=== PATIENT | female | born 1965 | race Caucasian/White ===

== ENCOUNTER → 2016-11-23 | Day surgery (SDC) | payer MEDICARE, OTHER ==
[~2016-11-23] MED LIST: ASPI325T PO; BACL10TA PO; BUPIVACAINE HCL PF 0.5% 30 ML VIAL ONE; CURI4PAD20 EXT; ENAL5TAB PO; KETOROLAC TROMETHAMINE 30 MG/ML (IVP) VIAL ONE; LACTATED RINGER'S 1000 ML INJ 1,000 ML ONE; LORA-474 PO; ONDANSETRON HCL 4 MG/2 ML VIAL IV PUSH ONE; OXYC1TAB63 PO; PRAV40TA2 PO; PROPOFOL 200 MG/20 ML AMP IV ONE; [UNRECOGNIZED DRUG - CODE]; [UNRECOGNIZED DRUG - CODE] EXT; [UNRECOGNIZED DRUG - CODE] EXT; [UNRECOGNIZED DRUG - CODE] EXT; [UNRECOGNIZED DRUG - CODE] EXT; [UNRECOGNIZED DRUG - SUPPLY] EXT; ceFAZolin 2 GM PREMIX 50 ML ONE
--- NOTE | 2016-11-23 12:44 | TN ---
cc: STEFANI MAHAN DATE OF SURGERY 11/23/2016 PRINCIPAL DIAGNOSIS BI-RADS five palpable right breast mass. PROCEDURE PERFORMED Ultrasound-guided right breast biopsy using a core needle with a tissue marker. ANESTHESIA TIVA SURGEON Stefani Mahan MD INDICATION The patient is a 51-year-old female with congenital hydrocephalus who is unable to cooperate or lay flat for procedures. She required sedation to evaluate a large palpable right breast mass which is highly suspicious for malignancy. She now presents for the procedure. FINDINGS AT SURGERY A 3 x 2 cm firm right breast mass with overlying lymphedema was identified at 12 o'clock 3 cm from the nipple. PROCEDURE PERFORMED After informed consent was obtained from the patient's mother, site verification was performed and she was brought back to the major operating room. She underwent IV sedation and the right breast was prepped and draped in a sterile fashion. There was an obvious palpable mass at 12 o'clock and the skin overlying the mass did have a healing biopsy site. The lesion was identified using conventional scanning techniques and a high-frequency transducer with a sterile probe. The skin lateral to the transducer was incised and a 14-gauge core biopsy needle was introduced using ultrasound guidance until the needle tip was within the lesion. Six core samples were obtained and sent for pathologic evaluation utilizing ultrasound guidance. The biopsy needle was then removed and a 14-gauge linear Mammotome tissue marker was placed in the biopsy cavity using ultrasound guidance. Hemostasis was easily obtained with direct pressure and Steri-Strips were applied. The patient tolerated the procedure well and will follow up her biopsy results next week. MD LOPEZ Gongora/MILLIE /12:29 PM /12:39 PM
== END | disposition home or self-care (01) ==
LOC: ESDC 09:57
PROVIDERS: ATTEND Surgery
DX: C50.911 Malignant neoplasm of unspecified site of right female breast (principal)
CPT/HCPCS: 00400; 19125; 88305; J0690; J1885; J2405; J3010; J7120; 88361

== ENCOUNTER 2016-12-30 05:46 | Inpatient (IN) | payer MEDICARE, OTHER ==
[~2016-12-30] VITALS: Ht 149.9 cm; Wt 62.7 kg
[~2016-12-30 05:46] MED LIST changes: -ASPI325T PO; -BACL10TA PO; -BUPIVACAINE HCL PF 0.5% 30 ML VIAL ONE; -ENAL5TAB PO; -KETOROLAC TROMETHAMINE 30 MG/ML (IVP) VIAL ONE; -LACTATED RINGER'S 1000 ML INJ 1,000 ML ONE; -LORA-474 PO; -ONDANSETRON HCL 4 MG/2 ML VIAL IV PUSH ONE; -OXYC1TAB63 PO; -PRAV40TA2 PO; -PROPOFOL 200 MG/20 ML AMP IV ONE; -ceFAZolin 2 GM PREMIX 50 ML ONE
[2016-12-30] MEDS ORDERED: CHLORHEXIDINE GLUCONATE 2 % 1 PACK (2 CLOTHS) TOPICAL PRN (06:30)
[2016-12-30] MEDS ORDERED: LACTATED RINGER'S 1000 ML IV PRN (06:30)
[2016-12-30] MEDS ORDERED: SODIUM CHLORID 0.9% 500 ML IV PRN (06:30)
[2016-12-30] MEDS ORDERED: METOPROLOL TARTRATE 25 MG TAB PO PRN (06:30)
[2016-12-30] MEDS ORDERED: POVIDONE IODINE 5% (ANTISEPSIS KIT) 4 APPLICATIONS EACH NARE PRN (06:30)
[2016-12-30] MEDS ORDERED: INSULIN HUMAN REGULAR 1,000 UNITS/10 ML VIAL SQ PRN (06:30)
[2016-12-30] MEDS ORDERED: ONDANSETRON HCL 4 MG/2 ML VIAL IV PUSH SCH (06:30)
[2016-12-30 07:12] VITALS: PULSE 117; RESP 22; TEMP 97.4; O2SAT 100
[2016-12-30 07:17] LABS: AUTOMATED NEUTROPHIL # 5.9 TH/MM3 (1.8-7.7); BASOPHIL # 0.1 TH/MM3 (0-0.2); BASOPHIL % 0.9 % (0.0-2.0); EOSINOPHIL # 0.4 TH/MM3 (0-0.4); EOSINOPHIL % 5.1 % (0.0-4.0); HEMATOCRIT 39.1 % (35.0-46.0); LYMPH % 13.6 % (9.0-44.0); LYMPHOCYTE # 1.1 TH/MM3 (1.0-4.8); MEAN CELL VOLUME 84.3 FL (80.0-100.0); MEAN CORPUSCULAR HEMOGLOBIN 29.5 PG (27.0-34.0); MONO % 8.9 % (0.0-8.0); NEUT % 71.5 % (16.0-70.0); PLATELET COUNT 294 TH/MM3 (150-450); RED BLOOD COUNT 4.64 MIL/MM3 (4.00-5.30); RED CELL DISTRIBUTION WIDTH 13.2 % (11.6-17.2); WHITE BLOOD COUNT 8.3 TH/MM3 (4.0-11.0)
[2016-12-30 07:20] LABS: HEMO FLAGS AUTO DIFF
[2016-12-30 07:55] LABS: PLATELET ESTIMATE SMEAR NORMAL (NORMAL); PLATELET MORPHOLOGY NORMAL (NORMAL); SCAN/DIFF AUTO DIFF CONFIRMED
[2016-12-30] MEDS ORDERED: ISOSULFAN BLUE 50 MG/5 ML VIAL SQ ONE ×2 (09:02→13:45)
[2016-12-30] MEDS ORDERED: ePHEDrine/NS 25 MG/5 ML SYR IV ONE (09:03)
[2016-12-30] MEDS ORDERED: PROPOFOL 200 MG/20 ML AMP IV ONE (09:03)
[2016-12-30] MEDS ORDERED: ONDANSETRON HCL 4 MG/2 ML VIAL IV PUSH ONE (09:04)
[2016-12-30] MEDS ORDERED: NEOSTIGMINE 3 MG/3 ML SYR IV ONE (09:04)
[2016-12-30] MEDS ORDERED: LACTATED RINGER'S 1000 ML INJ 2,000 ML IV ONE (09:04)
[2016-12-30] MEDS ORDERED: PHENYLEPH/NS 1000 MCG/10 ML SYR IV ONE (09:04)
--- NOTE | 2016-12-30 09:38 | RADRPT ---
EXAM DATE/TIME: 12/30/2016 08:35 [facility] COMPARISON: No previous studies available for comparison. INDICATIONS : Right breast cancer. DOSE: 1.0 mCi Tc99m Sulfur Colloid INJECTION SITE: Right Breast MEDICAL HISTORY : Mentally disbaled. SURGICAL HISTORY : Liver/Right breast biopsy. ENCOUNTER: Initial ACUITY: 1 day PAIN SCALE: 0/10 LOCATION: Right Breast. TECHNIQUE: Injection(s) of sulfur colloid was performed under sonographic guidance. Static imaging was obtained .. FINDINGS: This known right breast masses was identified by ultrasound. Superficial and deep injection around th e mass was performed. Imaging was performed at 30 minutes. There is some mild outward migration of th e tracer but no definite swati localization is seen. CONCLUSION: 1. Successful injection for lymphoscintigraphy. No definite swati localization identified at 30 minut lamar Baer MD on December 30, 2016 at 9:36 Board Certified Radiologist. This report was verified electronically.
[2016-12-30] MEDS ORDERED: ceFAZolin 2 GM PREMIX 50 ML IV SCH (10:00)
[2016-12-30] MEDS ORDERED: KETAMINE HCL 500 MG/5 ML VIAL ONE (10:48)
[2016-12-30] MEDS ORDERED: ACETAMINOPHEN 1000 MG/100 ML VIAL IV ONE (10:50)
--- NOTE | 2016-12-30 10:59 | RADRPT ---
EXAM DATE/TIME: 12/30/2016 08:24 [facility] COMPARISON: No previous studies available for comparison. EXTERNAL COMPARISON : [facility], MAMMOGRAM, LEFT BREAST W TOMOSYNTHESIS, November 22, 2016[facility], MAMM OGRAM, RIGHT BREAST, October. [facility], US BREAST, RIGHT, November 11, 2016. INDICATIONS : Right breast cancer. MEDICAL HISTORY : Carcinoma, breast. SURGICAL HISTORY : Right breast biopsy. Liver biopsy. ENCOUNTER: Initial ACUITY: 1 day PAIN SCORE: 1/10 LOCATION: Right breast. AREA EVALUATED: Right breast, upper quadrant; at 12 o'clock Radiopharmaceutical dose: 1 Tc99m [place] colloid FINDINGS: Breast ultrasound was performed prior to lymphoscintigraphy. CONCLUSION: 1. The examination demonstrates a 2.6 x 2.2 x 2.6 cm ill-defined hypoechoic mass with hypervascular f low in the right breast at 12: 2. 00. Findings are consistent with malignancy. Injection for lymphoscintigraphy was performed in the deep and superficial planes around this lesion. Trey Baer MD on December 30, 2016 at 10:57 Board Certified Radiologist. This report was verified electronically.
[2016-12-30] MEDS ORDERED: SODIUM CHLORIDE 0.9% 20 ML VIAL ONE (11:04)
[2016-12-30] MEDS ORDERED: HEPARIN SODIUM - IV 10,000 UNITS/10 ML VIAL ONE (11:05)
[2016-12-30] MEDS ORDERED: BUPIVACAINE/EPINEPHRINE 0.5% PF 30 ML VIAL ONE ×2 (11:05→12:02)
[2016-12-30] MEDS ORDERED: ceFAZolin INJ 1,000 MG VIAL IV ONE (11:59)
[2016-12-30] MEDS ORDERED: DO NOT ADM ANY ANTICOAGULANT DRUGS PRN (15:37)
[2016-12-30] MEDS ORDERED: oxyCODONE/ACETAMINOPHEN 5 MG/325 MG TAB PO PRN (15:45)
[2016-12-30] MEDS ORDERED: fentaNYL CITRATE 250 MCG/5 ML AMP ONE ×2 (15:47)
[2016-12-30] MEDS ORDERED: *morphine SULFATE 8 MG/ML PERIprocedure ONLY ONE ×3 (15:52→17:18)
[2016-12-30] MEDS ORDERED: *ONDANSETRON 4 MG VIAL PERIprocedural Use ONLY ONE (15:58)
[2016-12-30] MEDS ORDERED: *PROMETHAZINE 25 MG/ML VIAL PERIprocedural use ONLY ONE (15:58)
[2016-12-30] MEDS: SODIUM CHLOR 0.9% 1000 ML INJ 1,000 ML IV SCH ×2 (16:22→21:40)
--- NOTE | 2016-12-30 16:59 | RADRPT ---
EXAM DATE/TIME: 12/30/2016 17:17 [facility] COMPARISON: FLUOROSCOPY FOR CV CATH [facility], December 30, 2016, 0:00. INDICATIONS : Infusaport insertion. MEDICAL HISTORY : Carcinoma, breast. SURGICAL HISTORY : Mastectomy, bilateral. ENCOUNTER: Initial ACUITY: 1 day PAIN SCORE: Non-responsive. LOCATION: Left upper chest FINDINGS: The examination demonstrates an [id number]-[id number] placed via the left subclavian vein. The catheter is in good position there is no pneumothorax. There surgical drains evident overlying both sides of the chest. The bony structures are intact. CONCLUSION: [id number]-c-Fetz in good position without evidence of pneumothorax. Trey Baer MD on December 30, 2016 at 16:57 Board Certified Radiologist. This report was verified electronically.
[2016-12-30 17:30] VITALS: BP 152/85; PULSE 109; RESP 14; TEMP 96.1; O2SAT 100
[2016-12-30 19:54] VITALS: O2SAT 99
[2016-12-30 20:00] VITALS: BP 176/97; PULSE 105; RESP 20; TEMP 97.4; O2SAT 96
[2016-12-30] MEDS: MORPHINE SULFATE 4 MG/ML INJ IV PRN (21:40)
[2016-12-31] VITALS (7 sets, daily range): BP systolic 108–129; BP diastolic 55–71; PULSE 78–94; RESP 12–20; TEMP 95.8–98.8; O2SAT 95–99
[2016-12-31] MEDS: MORPHINE SULFATE 4 MG/ML INJ IV PRN (06:16)
[2016-12-31] MEDS: SODIUM CHLOR 0.9% 1000 ML INJ 1,000 ML IV SCH (09:32)
--- NOTE | 2016-12-31 12:50 | HHI.PR ---
Subjective Subjective Notes Patient resting but too sedated to ambulate or eat. Will stop IV narcotics and continue observation. Objective Vitals/I&O Vital Signs Date Time Temp Pulse Resp B/P Pulse Ox O2 Delivery O2 Flow Rate FiO2 12/31/16 08:00 97.2 78 12 109/62 98 12/30/16 19:54 Nasal Cannula 2.00 Labs PO intake minimal UOP 1200 after straight cath. Cardiovascular: Regular Lungs: Clear Narrative Exam Chest wall flaps clean and viable. No ischemia. Wound Wound : Appearance: Clean & Dry Drainage: Clear A/P Assessment and Plan Stable but too sedated for discharge. Will stop IV morphine and continue hospital observation. Discharge Planning Anticipate discharge tomorrow. Stefani Corrales MD Dec 31, 2016 12:50
[2017-01-01] VITALS: BP 157/80; PULSE 113; RESP 20; TEMP 99.5; O2SAT 96
[2017-01-01 08:00] VITALS: BP 103/68; PULSE 81; RESP 18; TEMP 97.1; O2SAT 95
[2017-01-01 10:28] VITALS: O2SAT 97
[2017-01-01 12:00] VITALS: BP 152/81; PULSE 104; RESP 20; TEMP 97.3; O2SAT 98
--- NOTE | 2017-01-01 13:17 | HHI.PR ---
Subjective Subjective Notes Somewhat more alert but not ambulatory and not eating. Objective Vitals/I&O PO intake 120cc. Voided 3 times. L drain 95cc, right drain 60cc Vital Signs Date Time Temp Pulse Resp B/P Pulse Ox O2 Delivery O2 Flow Rate FiO2 01/01/17 10:28 97 Nasal Cannula 21 01/01/17 08:00 97.1 81 18 103/68 12/31/16 18:02 2.00 Cardiovascular: Regular Lungs: Clear Narrative Exam Chest wall flaps clean. No infection or seroma. Left upper flap with 2 X 3 cm area superficial ecchymosis and ischemia. A/P Assessment and Plan Stable but too sedated for discharge. Still sedated despite no morphine. Not yet ambulatory or taking po. Will stop all narcotics and give IV hydration. Anticipate DC tomorrow. Discharge Planning Anticipate discharge tomorrow. Stefani Corrales MD Jan 01, 2017 13:17
[2017-01-01] MEDS: SODIUM CHLOR 0.9% 1000 ML INJ 1,000 ML IV SCH (14:56)
[2017-01-01 16:00] VITALS: BP 146/78; PULSE 98; RESP 21; TEMP 97.6; O2SAT 99
[2017-01-01 20:00] VITALS: BP 160/89; PULSE 102; RESP 20; TEMP 98.4; O2SAT 98
[2017-01-02] VITALS: BP 156/77; PULSE 94; RESP 20; TEMP 97.6; O2SAT 97
[2017-01-02] MEDS: SODIUM CHLOR 0.9% 1000 ML INJ 1,000 ML IV SCH ×2 (00:34→10:03)
[2017-01-02 08:00] VITALS: BP 153/95; PULSE 102; RESP 12; TEMP 96.6; O2SAT 97
--- NOTE | 2017-01-02 11:16 | HHI.PR ---
Subjective Subjective Notes More alert today Resting comfortably. No nausea. Objective Vitals/I&O Vital Signs Date Time Temp Pulse Resp B/P Pulse Ox O2 Delivery O2 Flow Rate FiO2 01/02/17 08:00 96.6 102 12 153/95 97 01/01/17 10:28 Nasal Cannula 21 12/31/16 18:02 2.00 PO intake 720cc. IV 1400. L drain 60cc, right 30cc. Radiology Chest Xray 12/30 showed good port position and no pneumothorax. Narrative Exam Chest wall flaps clean. No infection or seroma. Left upper flap with 3 X 3 cm area ischemia medially. R chest wall flap clean and viable. Wound Wound : Dressing: Dry A/P Assessment and Plan Stable but too sedated for discharge. Still sedated despite no morphine. Not yet ambulatory or taking po. Will stop all narcotics and give IV hydration. Anticipate DC tomorrow. Discharge Planning Anticipate discharge tomorrow. Stefani Corrales MD Jan 02, 2017 11:16
--- NOTE | 2017-01-02 11:21 | HHI.PR ---
Objective Vitals/I&O Vital Signs Date Time Temp Pulse Resp B/P Pulse Ox O2 Delivery O2 Flow Rate FiO2 01/02/17 08:00 96.6 102 12 153/95 97 01/01/17 10:28 Nasal Cannula 21 12/31/16 18:02 2.00 Radiology Chest Xray 12/30 showed good port position and no pneumothorax. Narrative Exam Chest wall flaps clean. No infection or seroma. Left upper flap with 3 X 3 cm area ischemia medially. R chest wall flap clean and viable. A/P Assessment and Plan Stable and less sedated. D/C home today. Discharge Planning Discharge with home health. Attending Statement Patient required 3 day postop stay for hydration and to counter sedation. Now improved. Stefani Corrales MD Jan 02, 2017 11:21
--- NOTE | 2017-01-02 11:27 | HHI.DS ---
Discharge Summary Admission Date Dec 30, 2016 at 15:48 Admitting Diagnosis CBC/BMP: 12/30/16 0650 PE at Discharge Chest wall flaps clean. No infection or seroma. Left upper flap with 3 X 3 cm area ischemia medially. R chest wall flap clean and viable. Pt Condition on Discharge: Good Discharge Disposition: Disch w/ Home Health Serv Discharge Instructions DIET: Follow Instructions for: As Tolerated, No Restrictions Activities you can perform: Shower Only-No Bath Stefani Corrales MD Jan 02, 2017 11:27
--- NOTE | 2017-01-02 11:42 | HHI.FF ---
Face to Face Verification Diagnosis: (1) Breast cancer greater than or equal to 2 cm in greatest dimension (2) Neurocognitive disorder (3) Obsessive compulsive disorder Home Health Nursing Order: Wound care and dressing changes I have seen patient Patrizia Moreno on 01/02/17. My clinical findings support the need for the requested home health care services because: Deconditioned w/ increased weakness Impaired cognition/judgement I certify that my clinical findings support that this patient is homebound because: Post-op weakness Impaired cognitive ability/safety Requires fulltime care by mother and sister. Post mastectomy and needs dressing care assistance. Stefani Corrales MD Jan 02, 2017 11:41
[2017-01-02 12:00] VITALS: BP 156/97; PULSE 91; RESP 14; TEMP 99.3; O2SAT 98
--- NOTE | 2017-01-02 12:23 | MP ---
cc: STEFANI MAHAN M.D. DATE OF SURGERY: 12/30/2016 PRINCIPAL DIAGNOSIS Clinical stage II right breast cancer ATTENDING PHYSICIAN Stefani Mahan MD HISTORY OF PRESENT ILLNESS The patient is a 51-year-old female known to be BRCA positive who presented with T2 palpable large subareolar right breast cancer. Because she is BRCA positive, she has opted for bilateral mastectomy as well as port placement and now presents for the procedure. FINDINGS AT THE TIME OF SURGERY Three sentinel lymph nodes were identified. #1 had a count of 341 and was not blue. #2 had a count of 55 and #3 had a count of 40. Touch prep was negative for metastatic disease. PROCEDURE PERFORMED After informed consent was obtained from the patient's family and site verification was performed, she was brought to the radiology suite where she underwent peritumoral radionuclide injection. She was then brought to the major operating room where she was given a single dose of IV Ancef and sequential compression hose were placed. She underwent general endotracheal anesthesia and a Moreno catheter was placed. The right and left breast as well as the neck and right arm were prepped and draped in sterile fashion. 5 ccs of half-strength Lymphazurin were injected in the subareolar right breast with a 5-minute massage. The patient was placed in Trendelenburg and the left subclavian vein was accessed via percutaneous cannulation. A J-wire was advanced via the Seldinger technique into the central circulation where its position was confirmed with fluoroscopy. Sharp and electrocautery dissection was then performed to create a subcutaneous pocket for the reservoir. A peel-away sheath and introducer were advanced over the wire and the wire and introducer were removed. The catheter was cut off at 30 cm and advanced easily through the peel-away sheath which was then removed. Fluoroscopy demonstrated good position of the catheter tip at 17 cm and it was cut off at this point and secured to the reservoir. The reservoir was noted to flush and aspirate easily and it was secured to the chest wall with two 2-0 Prolene sutures. Good hemostasis was noted and the wound was closed using interrupted 3-0 Vicryl subcutaneous sutures and a 4-0 Monocryl subcuticular suture. Steri-Strips and a sterile dressing were applied. Attention was then turned to the left breast where a classic elliptical incision was marked out. 210 ccs of tumescent solution mixed with 30 ccs of Marcaine with epinephrine were then infiltrated circumferentially around the breast in the plane between the subcutaneous fat and anterior breast fascia. Sharp dissection was performed in this same plane superiorly to the clavicle, medially to the parasternal area, laterally to the axilla, and inferiorly to the anterior rectus sheath. Electrocautery was then used to dissect the breast tissue off the pectoralis muscle including the pectoralis fascia with the specimen. The specimen was amputated in the axilla and oriented with the skin anterior, one short suture superiorly, and one long suture laterally. The breast was then sent for permanent pathologic evaluation. A stab wound was created along the anterior axillary line and a 10-Bahamian channel drain was placed along the chest wall and secured to the skin with a single 3-0 Nylon suture. The wound was closed using interrupted 3-0 Vicryl subcutaneous sutures and a 4-0 Monocryl subcuticular suture. Steri-Strips and sterile dressing were applied. Attention was then turned to the right breast where a large palpable subareolar mass was identified. A classic elliptical incision was marked out to include the skin overlying the palpable tumor. 250 ccs of tumescent solution mixed with 30 ccs of Marcaine with epinephrine were infiltrated circumferentially around the breast and the plane between the subcutaneous fat and anterior breast fascia. Further sharp dissection was performed in this same plane superiorly to the clavicle, medially to the parasternal area, inferiorly to the anterior rectus sheath, and laterally to the axilla. The breast was again dissected off the pectoralis muscle using electrocautery and the pectoralis fascia was included with the breast specimen which was amputated in the axilla. The right breast specimen was oriented with the skin anterior, one long suture superiorly, and one short suture medially. Both breasts were sent for permanent pathologic evaluation. The clavipectoral fascia was divided and the level I axilla was entered. There were no blue lymphatic channels but there were two 1 cm mid level I lymph nodes which were circumferentially dissected free from surrounding structures using the harmonic scalpel with the counts as noted. A third smaller lymph node was circumferentially dissected free from surrounding structures using the harmonic scalpel and this node had a count of 40. Touch prep analysis was performed and was negative for metastatic disease. Good hemostasis was noted and a stab wound was created along the right anterior axillary line. A 10-Bahamian right channel drain was placed and secured to the skin with a 3-0 Nylon suture. The wound was closed using interrupted 3-0 Vicryl subcutaneous sutures and a 4-0 Monocryl subcuticular suture. Steri-Strips and sterile dressings were applied. The patient tolerated the procedure well with an estimated blood loss of 100 ccs and she was extubated in the operating room and brought to the recovery room in good condition. All sponge and needle counts were correct at the conclusion of the case. MD LOPEZ Gongora/HELADIO /3:28 PM /12:12 PM
[2017-01-02 16:00] VITALS: BP 146/77; PULSE 84; RESP 12; TEMP 96.3; O2SAT 100
[2017-01-02 20:00] VITALS: BP 123/70; PULSE 67; RESP 18; TEMP 98.2; O2SAT 97
[2017-01-02 22:00] VITALS: BP 130/66; PULSE 69; RESP 20; TEMP 98.4; O2SAT 99
[2017-01-03] MEDS: ACETAMINOPHEN 325 MG TAB PO PRN ×2 (04:21→12:13)
[2017-01-03 08:00] VITALS: BP 154/85; PULSE 96; RESP 16; TEMP 97.5; O2SAT 98
[2017-01-03 12:00] VITALS: BP 150/79; PULSE 99; RESP 16; TEMP 98.4; O2SAT 98
--- NOTE | 2017-01-03 13:15 | HHI.PR ---
Subjective Subjective Notes More alert each today but not ambulating or interacting much. No pain. Objective Vitals/I&O Vital Signs Date Time Temp Pulse Resp B/P Pulse Ox O2 Delivery O2 Flow Rate FiO2 01/03/17 12:00 98.4 99 16 150/79 98 01/01/17 10:28 Nasal Cannula 21 12/31/16 18:02 2.00 PO 600cc Drain 70cc/60cc. Radiology Chest Xray 12/30 showed good port position and no pneumothorax. Cardiovascular: Regular Lungs: Clear Narrative Exam Chest wall flaps clean. No infection or seroma. Left upper flap with 3 X 3 cm area ischemia medially. R chest wall flap clean and viable. A/P Assessment and Plan Stable and less sedated. Family unwilling to take home because of poor ambulation and po intake. Will reassess neuro status with labs and CT. If OK, will need to discharge. Discharge Planning Discharge with home health. Attending Statement Workup in progress to reassess neuro status. If abnormal, will transfer to [facility] for further care. If normal, will discharge. Stefani Corrales MD Jan 03, 2017 13:15
[2017-01-03 14:08] LABS: AUTOMATED NEUTROPHIL # 5.7 TH/MM3 (1.8-7.7); BASOPHIL % 0.3 % (0.0-2.0); EOSINOPHIL % 0.6 % (0.0-4.0); HEMATOCRIT 25.8 % (35.0-46.0); HEMO FLAGS DIFF FINAL; LYMPHOCYTE # 0.6 TH/MM3 (1.0-4.8); MEAN CELL VOLUME 87.8 FL (80.0-100.0); MEAN CORPUSCULAR HEMOGLOBIN 29.2 PG (27.0-34.0); MEAN CORPUSCULAR HGB CONC 33.2 % (32.0-36.0); MONO % 7.4 % (0.0-8.0); NEUT % 82.7 % (16.0-70.0); PLATELET COUNT 244 TH/MM3 (150-450); RED BLOOD COUNT 2.93 MIL/MM3 (4.00-5.30); RED CELL DISTRIBUTION WIDTH 13.3 % (11.6-17.2); WHITE BLOOD COUNT 6.9 TH/MM3 (4.0-11.0)
[2017-01-03 14:28] LABS: ALKALINE PHOSPHATASE 49 U/L (45-117); ALT (GPT) 19 U/L (10-53); ANION GAP 14 MEQ/L (5-15); AST (GOT) 25 U/L (15-37); BICARBONATE 18.3 MEQ/L (21.0-32.0); BLOOD UREA NITROGEN 10 MG/DL (7-18); CHLORIDE 110 MEQ/L (98-107); GLOMERULAR FILTRATION RATE 106 ML/MIN (>89); POTASSIUM 3.5 MEQ/L (3.5-5.1); SODIUM (NA) 142 MEQ/L (136-145); TOTAL BILIRUBIN ADULT 0.4 MG/DL (0.2-1.0)
--- NOTE | 2017-01-03 14:51 | RADRPT ---
EXAM DATE/TIME: 01/03/2017 14:39 [facility] COMPARISON: No previous studies available for comparison. INDICATIONS : Altered mental status. RADIATION DOSE: 49.14 CTDIvol (mGy) MEDICAL HISTORY : Cardiovascular disease. Carcinoma, breast. SURGICAL HISTORY : None. ENCOUNTER: Initial ACUITY: 1 day PAIN SCALE: 0/10 LOCATION: cranial TECHNIQUE: Multiple contiguous axial images were obtained of the head. Using automated exposure control and adj ustment of the mA and/or kV according to patient size, radiation dose was kept as low as reasonably a chievable to obtain optimal diagnostic quality images. FINDINGS: Osseous structures are intact. Ventricles and cisterns are of normal size and configuration. In the l eft periventricular white matter and caudate nucleus, patchy low density is seen most consistent with age indeterminate ischemic changes. The possibility of metastatic disease is also consideration but felt less likely. No hemorrhage is seen. CONCLUSION: Foci of low attenuation on the left and an MRI of the brain with and without contrast is recommended for further assessment. The possibility of ischemic event and should be excluded. Ramón Newell MD on January 03, 2017 at 14:48 Board Certified Radiologist. This report was verified electronically.
[2017-01-03 16:00] VITALS: BP 148/76; PULSE 95; RESP 17; TEMP 97.9; O2SAT 98
[2017-01-03] MEDS ORDERED: LORazepam 2 MG/ML VIAL IV ONE (17:15)
[2017-01-03] MEDS ORDERED: GADODIAMIDE PF 287 MG/ML 5 ML VIAL (for RAD MRI) IV ONE ×2 (18:16→18:35)
--- NOTE | 2017-01-03 19:53 | RADRPT ---
EXAM DATE/TIME: 01/03/2017 17:53 [facility] COMPARISON: CT BRAIN W/O CONTRAST, January 03, 2017, 14:39. INDICATIONS : Stroke. CONTRAST: 12 cc Omniscan (gadodiamide) IV MEDICAL HISTORY : Carcinoma, breast. SURGICAL HISTORY : Mastectomy, bilateral. ENCOUNTER: Subsequent ACUITY: 1 day PAIN SCORE: Nonresponsive. LOCATION: cranial TECHNIQUE: Multiplanar, multisequence MRI of the brain was performed both prior to and following the administrat ion of paramagnetic contrast. FINDINGS: CEREBRUM: The ventricles are normal for age. No evidence of midline shift, definite mass lesion, or hemorrhage . No extraaxial fluid collections are seen. The pituitary gland and suprasellar cistern are normal i n configuration. WHITE MATTER: On the weighted images there are multiple small patchy areas of increased signal noted in the right p eriventricular white matter and ortions in the basal ganglia. POSTERIOR FOSSA: The cerebellum and brainstem are intact. The 4th ventricle is midline. The cerebellopontine angle is unremarkable. The cerebellar tonsils are normal in position. DIFFUSION IMAGING: There are multiple punctate areas of restricted diffusion involving the left periventricular white ma tter and portions of the basal ganglia as well as the internal capsule region. EXTRACRANIAL: The visualized portions of the orbits and paranasal sinuses are unremarkable. POST-CONTRAST: No abnormal areas of parenchymal or dural enhancement. No evidence of blood-brain barrier breakdown. There is increased enhancement of the vasculature along the left middle cerebral artery territory. CONCLUSION: 1. Multiple punctate areas of restricted diffusion involving left periventricular white matter and po rtions of basal ganglia as well as the internal capsule region consistent with acute to subacute infa rction. 2. Increased vascular enhancement in the left middle cerebral artery territory. This finding likely i s from slow flow of contrast. Alex Coughlin MD on January 03, 2017 at 19:33 Board Certified Radiologist. This report was verified electronically.
[2017-01-03 20:00] VITALS: BP 145/85; PULSE 82; RESP 20; TEMP 96.6; O2SAT 99
[2017-01-04] VITALS: BP 115/74; PULSE 74; RESP 20; TEMP 97; O2SAT 98
[2017-01-04 08:00] VITALS: BP 131/88; PULSE 97; RESP 17; TEMP 97.9; O2SAT 97
[2017-01-04 12:00] VITALS: BP 133/78; PULSE 94; RESP 17; TEMP 98.1; O2SAT 98
--- NOTE | 2017-01-04 13:53 | HHI.PR ---
Subjective Subjective Notes Unable to swallow or move right arm. PO intake poor. No pain. Alert but not interacting. Objective Vitals/I&O Vital Signs Date Time Temp Pulse Resp B/P Pulse Ox O2 Delivery O2 Flow Rate FiO2 01/04/17 12:00 98.1 94 17 133/78 98 01/01/17 10:28 Nasal Cannula 21 12/31/16 18:02 2.00 PO 120cc Drain 70/70 L/R. Voided X 9. Labs CT head with low density areas left side. MRI consistent with acute infarct and slow flow ? thrombus. Radiology Chest Xray 12/30 showed good port position and no pneumothorax. Cardiovascular: Regular Lungs: Clear Narrative Exam Chest wall flaps clean. No infection or seroma. Left upper flap with 3 X 3 cm area ischemia medially. R chest wall flap clean and viable. Unable to lift right arm or leg. A/P Assessment and Plan Stable and less sedated. Imaging consistent with infarct and clinical exam supports this. Will transfer care to family medicine and consult neurology. Sharla for left chest flap. Discharge Planning Probable transfer to rehab facility post stroke. Attending Statement I have examined patient and discussed findings with family. Spoke to Dr. Bolden in family medicine and they will transfer to their care. Stefani Corrales MD Jan 04, 2017 13:53
[2017-01-04] MEDS: SILVER SULFADIAZINE 1% CR 400 GM JAR TOPICAL SCH (16:00)
[2017-01-04] MEDS: ASPIRIN 325 MG TAB PO SCH (16:15)
[2017-01-04] MEDS ORDERED: GLUCAGON 1 MG/ML VIAL IM/SQ PRN (16:15)
[2017-01-04] MEDS ORDERED: SODIUM CHLORIDE 0.9% FLUSH 10 ML FLUSH IV FLUSH PRN (16:15)
[2017-01-04] MEDS ORDERED: DEXTROSE 50% IN WATER 50 ML VIAL(D50) IV PUSH PRN (16:15)
--- NOTE | 2017-01-04 17:26 | HHI.HP ---
[facility] Service Family Medicine Primary Care Physician Stefani Corrales MD Admission Diagnosis Diagnoses: International Travel<30 Days: No Contact w/Intl Traveler<30days: No Known Affected Area: No History of Present Illness Transition of Care H/P: Ms. Moreno is a 51 y/o CF with a PMHx of neurocognitive impairment, OCD, and breast cancer who is currently POD #5 from BL mastectomy presenting with R sided hemiparesis and aphasia. Currently there is no one at the bedside, therefore the H/P is per chart review and staff. Medical team notified earlier this morning that the patient would be transferred to the Family Medicine service by General Surgery for continued care. The patient's mastectomy procedure was without complication. It was noted that her L upper flap had a 3X3cm area of ischemia medially that should resolve with Silvadene cream and dressing changes, per GS sign out. On POD #1-2, she was noted to have continued sedation, unable to ambulate, and decrease PO intake. On POD #3, the patient was less sedated and stable for DC. However, the family refused DC as they felt the patient was not at her baseline. On POD #4 neurological status was assessed with CT which was inconclusive and MRI was recommended. MRI showed multiple areas of restricted diffusion of the L brain concerning for acute/subacute infarction. 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 She is alert, but does not interact with the staff. Per staff report, prior to the procedure the patient was developmentally delayed with limited speech and multiple neurologic deficits due to her impairment. She was able to move all limbs and ambulate with assistance. She was able to recall some objects and family members names. Her PCP is Dr. Aracely Pardo at the [facility], and per her last note she was able to complete ADLs, but not IADLs. (Jefry Lewis MD R1) Review of Systems ROS Limitations: Clinical Condition (Jefry Lewis MD R1) Past Family Social History Past Medical History - Neurocognitive impairment secondary to hydrocephalus as a child - Can understand, but verbalizes minimally (one-two words) - Can perform ADLs independently but unable to perform IADLs - Recurrent skin picking & scratching - OCD Past Surgical History BL Mastectomy (Jefry Lewis MD R1) Allergies: Coded Allergies: No Known Allergies (Unverified , 12/30/16) Family History - Father: unknown - Mother: Hypothyroid - Sister: Breast Cancer (52) +BRCA gene - Sister: Hypothyroid - Maternal grandfather: DM - Uncle: DM Social History - Lives at home with mother and sister - Tobacco, EtOH, recreational drugs: never - Attends [employer] daily (22 years) (Jefry Lewis MD R1) Physical Exam Vital Signs Vital Signs Date Time Temp Pulse Resp B/P Pulse Ox O2 Delivery O2 Flow Rate FiO2 01/04/17 12:00 98.1 94 17 133/78 98 01/04/17 08:00 97.9 97 17 131/88 97 01/04/17 00:00 97.0 74 20 115/74 98 01/03/17 20:00 96.6 82 20 145/85 99 Physical Exam CONST: Well-developed, well-nourished female lying in bed in NAD. Patient does not interact during exam and is non-verbal. HEENT: Atraumatic, normocephalic with EOMI grossly intact (will track people around room). PERRLA. MMM. No rhinorhea. CV: RRR with no MGR. RESP: Clear to anterior auscultation BL. No increased WOB. GI: Soft, nondistended with +BS. MSK: Diffuse atrophy of muscles. No edema or cyanosis. 2+ PT and DP BL. NEURO: Patient is alert, but unable to communicate with examiners. Patient not cooperative in exam. Patient does not spontaneously move the R upper and lower extremity, but does on the L side. (Jefry Lewis MD R1) Result Diagram: 01/03/17 1341 01/03/17 1341 Imaging Last [address] 01/03/17 0000 Signed Impressions: Service Date/Time: Tuesday, January 03, 2017 14:39 - CONCLUSION: Foci of low attenuation on the left and an MRI of the brain with and without contrast is recommended for further assessment. The possibility of ischemic event and should be excluded. Ramón Newell MD Brain MRI 01/03/17 0000 Signed Impressions: Service Date/Time: Tuesday, January 03, 2017 17:53 - CONCLUSION: 1. Multiple punctate areas of restricted diffusion involving left periventricular white matter and portions of basal ganglia as well as the internal capsule region consistent with acute to subacute infarction. 2. Increased vascular enhancement in the left middle cerebral artery territory. This finding likely is from slow flow of contrast. Alex Coughlin MD (Jefry Lewis MD R1) Assessment and Plan Assessment and Plan Ms. Moreno is a 51 y/o CF with a PMHx of neurocognitive impairment, OCD, and breast cancer who is currently POD #5 from BL mastectomy presenting with R sided hemiparesis and aphasia secondary to ischemic stroke. Code Status FULL per chart review Discussed Condition With MALLORIE Zaldivar Dr., Dr. (Jefry Lewis MD R1) Attending Attestation Patient seen and examined. Case reviewed and discussed with the resident team. Agree with plan of care as discussed with me and documented in the resident note. pt seen on day of admission, agree with workup (Morena Crespo MD) Problem List: (1) Ischemic stroke Status: Acute Plan: Patient found to have ischemic stroke the MRI on postoperative day 4. Clinically patient unable to move right upper and lower extremity with aphasia. CT: Foci of low attenuation on the left. MRI of the brain with and without contrast is recommended for further assessment. MRI: Multiple punctate areas of restricted diffusion involving left periventricular white matter and portions of basal ganglia as well as the internal capsular region consistent with acute to subacute infarction. Increased vascular enhancement in the left middle cerebral artery territory. Finding likely is from slow flow of contrast. EKG: Pending Echocardiogram: Pending Carotid ultrasound: Pending Lipid profile: Pending Neurology consulted, appreciate recommendations Neurochecks with NIH stroke scale ordered PT/OT consulted NPO until swallow evaluation Medications: Aspirin 325 mg daily SSI per protocol Heparin 5000 units every 8 hours Avoid AMS medications (2) Breast cancer greater than or equal to 2 cm in greatest dimension Status: Acute Plan: Patient postop day 5 from bilateral mastectomy secondary to breast cancer. Patient's L upper flap had a 3X3cm area of ischemia medially that should resolve with Silvadene cream and dressing changes, per sign out Daily dressing changes with Silvadene per general surgery. (3) Neurocognitive disorder Status: Chronic Plan: Patient with neurocognitive disorder at baseline. (4) Nutrition, metabolism, and development symptoms Status: Acute Plan: Fluids: Team to add fluids if patient fails swallow evaluation Diet: Nothing by mouth until patient passes swallow evaluation Electrolytes: Within normal limits, continue to monitor DVT prophylaxis: Heparin 5000 units every 8 hours, JOSE/SCDs Prophylaxis: Tylenol 325 mg every 4 hours when necessary for pain (Jefry Lewis MD R1) Physician Certification 2 Midnight Certification Type: Admission for Inpatient Services Order for Inpatient Services The services are ordered in accordance with Medicare regulations or non- Medicare payer requirements, as applicable. In the case of services not specified as inpatient-only, they are appropriately provided as inpatient services in accordance with the 2-midnight benchmark. Estimated LOS (days): 3 3 days is the estimated time the patient will need to remain in the hospital, assuming treatment plan goals are met and no additional complications. Post-Hospital Plan: Home (Jefry Lewis MD R1) Jefry Lewis MD R1 Jan 04, 2017 17:26 Morena Crespo MD Jan 06, 2017 14:07
[2017-01-04 20:10] VITALS: BP 135/89; PULSE 103; RESP 16; TEMP 95.8; O2SAT 97
[2017-01-04] MEDS: HEPARIN SODIUM - SQ 10,000 UNITS/ML VIAL SQ SCH (20:58)
[2017-01-04] MEDS: INSULIN ASPART SUPPLEMENTAL SCALE SQ SCH (20:58)
[2017-01-04] MEDS: SODIUM CHLORIDE 0.9% FLUSH 10 ML FLUSH IV FLUSH SCH (21:00)
--- NOTE | 2017-01-04 23:46 | RADRPT ---
EXAM DATE/TIME: 01/04/2017 23:01 [place] COMPARISON: No previous studies available for comparison. INDICATIONS : Cerebrovascular accident. MEDICAL HISTORY : Carcinoma, breast. Enlarged heart at . SURGICAL HISTORY : Mastectomy, bilateral. Right breast biopsy. Liver biopsy. Infusaport placement. ENCOUNTER: Initial ACUITY: 1 day PAIN SCORE: Nonresponsive. LOCATION: Bilateral neck PEAK SYSTOLIC VELOCITIES (cm/sec): ICA/CCA RATIO: Right: 0.8 Left: 0.2 ICA: Right: 61 Left: 12 CCA: Right: 75 Left: 67 ECA: Right: 53 Left: 62 VERTEBRAL: Right: 50 antegrade Left: 49 antegrade Elevated flow velocities and ICA/CCA ratios have been found to correlate with increased degrees of vessel stenosis, calculated as percentage of diameter relative to a normal segment of distal ICA/CCA FINDINGS: RIGHT CAROTID: No significant stenosis is visualized. The waveforms are within normal limits. LEFT CAROTID: No significant stenosis is visualized. The waveforms are within normal limits. VERTEBRAL ARTERIES: Antegrade flow is seen in both vertebral arteries. MISCELLANEOUS: None. CONCLUSION: No hemodynamically significant stenosis in either carotid artery. Georges Lee MD on January 04, 2017 at 23:43 Board Certified Radiologist. This report was verified electronically.
[2017-01-05 00:26] VITALS: BP 135/78; PULSE 89; RESP 18; TEMP 99; O2SAT 98
[2017-01-05 05:10] LABS: AUTOMATED NEUTROPHIL # 6.6 TH/MM3 (1.8-7.7); BASOPHIL % 0.5 % (0.0-2.0); EOSINOPHIL # 0.2 TH/MM3 (0-0.4); EOSINOPHIL % 1.9 % (0.0-4.0); HEMO FLAGS DIFF FINAL; LYMPH % 10.1 % (9.0-44.0); LYMPHOCYTE # 0.8 TH/MM3 (1.0-4.8); MEAN CELL VOLUME 86.1 FL (80.0-100.0); MEAN CORPUSCULAR HEMOGLOBIN 30.1 PG (27.0-34.0); MEAN CORPUSCULAR HGB CONC 34.9 % (32.0-36.0); MONO % 7.9 % (0.0-8.0); NEUT % 79.6 % (16.0-70.0); PLATELET COUNT 341 TH/MM3 (150-450); RED BLOOD COUNT 3.94 MIL/MM3 (4.00-5.30); RED CELL DISTRIBUTION WIDTH 13.8 % (11.6-17.2); WHITE BLOOD COUNT 8.3 TH/MM3 (4.0-11.0)
[2017-01-05] MEDS: INSULIN ASPART SUPPLEMENTAL SCALE SQ SCH ×4 (05:19→21:00)
[2017-01-05] MEDS: HEPARIN SODIUM - SQ 10,000 UNITS/ML VIAL SQ SCH ×3 (05:20→21:01)
[2017-01-05 05:38] LABS: ALT (GPT) 17 U/L (10-53); ANION GAP 13 MEQ/L (5-15); AST (GOT) 16 U/L (15-37); BLOOD UREA NITROGEN 14 MG/DL (7-18); CHLORIDE 112 MEQ/L (98-107); GLOMERULAR FILTRATION RATE 113 ML/MIN (>89); POTASSIUM 3.3 MEQ/L (3.5-5.1); SODIUM (NA) 145 MEQ/L (136-145)
[2017-01-05 05:40] LABS: ALKALINE PHOSPHATASE 44 U/L (45-117); LDL CHOLESTEROL 108 MG/DL (0-99); TOTAL BILIRUBIN ADULT 0.5 MG/DL (0.2-1.0)
--- NOTE | 2017-01-05 07:12 | MB ---
cc: ISSA RIOJAS MD DATE OF CONSULTATION 01/04/2017 REASON FOR CONSULTATION Acute stroke HISTORY OF PRESENT ILLNESS Ms. Moreno is a 51-year-old female with past medical history of neurocognitive impairment, OCD, breast cancer who is currently today postoperative day #5 from bilateral mastectomy. The patient is at baseline dysphasic, hence the medical information is obtained from the attending physician during the phone conversation with her and the medical chart. The patient presented with right-sided weakness and aphasia. No family member at the bedside. The patient's mastectomy procedure was without complication. At postoperative day #3, the family refused discharge. They felt that the patient was not at her baseline. On postoperative day #4, neurological status was assessed with CT and was inconclusive. MRI was recommended and that showed multiple areas of infarction concerning for left-sided restricted diffusion concerning for acute subacute infarct. The patient is at baseline with developmental of delay in her speech and multiple neurologic deficits. Impairment, but able to move all extremities and ambulate with assistance. She used to be able to recall some objects and family member names. REVIEW OF SYSTEMS Unable to obtain. PAST MEDICAL HISTORY 1. Unable to obtain, but from medical chart, neurocognitive impairment secondary to hydrocephalus as a child. At baseline, she can at this time, but verbalizes minimally one to two words, can perform ADLs independently, but unable to perform IADL's. 2. Recurrent skin picking and scratching. 3. OCD PAST SURGICAL HISTORY Bilateral mastectomy. ALLERGIES No known allergies. FAMILY HISTORY Father unknown. Mother hypothyroid. Sister breast cancer, positive BRCA gene. Hypothyroid. Maternal grandfather diabetes. Uncle diabetes. SOCIAL HISTORY Lives at home with mother and sister. Never tobacco, ethanol or recreational drug abuse. Attends [employer] school daily. PHYSICAL EXAMINATION GENERAL: The patient is awake, alert and nonverbal, dysphasic. HEENT: Atraumatic, normocephalic. Unable to assess hearing and vision due to dysphasia. CARDIOVASCULAR: Regular rate and rhythm. RESPIRATORY: Clear to auscultation. No wheezes. GI. Soft abdomen, nontender. MUSCULOSKELETAL: The chest is wrapped with gauze and plaster. Clear right sided weakness and facial droop. NEUROLOGIC: The patient is awake, global dysphasia, mild right facial palsy. Tracks objects in the room. Follows verbal commands, "squeeze my hands on the left", unable to move the entire right-sided flaccid hemiparesis 0/5 right upper and lower extremity with severe hypertonia. Left upper and lower extremity normal tone. Intermittently moves the left upper and lower extremity. Reflexes 1+ on the left side upper and lower extremity with Babinski on the right. Left side 2+. Plantar downgoing. Unable to assess sensation and cerebellar function due to dysphagia. LABORATORY DATA White BC 6.9, hemoglobin 8.6, platelet 204. Sodium 142, potassium 3.5, albumin 3 , LFT within normal. DIAGNOSTICS IMAGING STUDIES - Head CT scan on 01/03 with foci of low attenuation on the left. - Brain MRI revealed multiple punctate areas of restricted diffusion involving the left periventricular white matter and portions of the basal ganglia as well as internal capsule lesion consistent with acute subacute infarction. Increased vascular enhancement on the left middle cerebral artery territory. This finding likely is from slow flow contrast. - Carotid ultrasound, no hemodynamically significant stenosis in either carotid artery. DIAGNOSTIC IMPRESSION 1 Acute ischemic stroke in the left MCA territory. 2. Possible etiology is thromboembolic phenomenon. 3. Breast cancer status post bilateral mastectomy. PLAN 1. Neuro checks q4 hourly. 2. Aspirin 325 mg daily. 3. Speech therapy, recommendations are appreciated. 4. N.p.o. until cleared by speech therapy. 5. PT, OT recommendations are appreciated. 6. Cardiac echo 7. Telemetry 8. DVT prophylaxis. Thank you for the opportunity to participate in the care of your patient. MD ROGELIO Lowry/MILLIE /12:01 AM /6:50 AM HARVEY
[2017-01-05 08:00] VITALS: BP 141/82; PULSE 89; RESP 18; TEMP 97.4; O2SAT 100
[2017-01-05] MEDS: NS + KCL 20 MEQ INJ 1,000 ML IV SCH ×2 (08:00→21:02)
[2017-01-05] MEDS: ASPIRIN 325 MG TAB PO SCH (09:00)
[2017-01-05] MEDS: SODIUM CHLORIDE 0.9% FLUSH 10 ML FLUSH IV FLUSH SCH ×2 (09:00→21:00)
[2017-01-05] MEDS: SILVER SULFADIAZINE 1% CR 400 GM JAR TOPICAL SCH (09:00)
[2017-01-05] MEDS ORDERED: oxyCODONE/ACETAMINOPHEN 5 MG/325 MG TAB PO PRN (10:30)
--- NOTE | 2017-01-05 10:41 | HHI.HP ---
[facility] Service Family Medicine Primary Care Physician Stefani Corrales MD Admission Diagnosis Diagnoses: (1) Ischemic stroke Diagnosis: Principal (2) Breast cancer greater than or equal to 2 cm in greatest dimension Diagnosis: Principal (3) Neurocognitive disorder Diagnosis: Principal (4) Nutrition, metabolism, and development symptoms Diagnosis: Principal International Travel<30 Days: No Contact w/Intl Traveler<30days: No Known Affected Area: No History of Present Illness Transition of Care H/P: Ms. Moreno is a 51 y/o CF with a PMHx of neurocognitive impairment, OCD, and breast cancer who is currently POD #6 from BL mastectomy presenting with R sided hemiparesis and aphasia. History was given by her sister who was at her bedside today. Medical team was notified yesterday morning that the patient would be transferred to the Family Medicine service by Surgery for continued care. The patient's mastectomy procedure was without complication. It was noted that her L upper flap had a 3X3cm area of ischemia medially that should resolve with Silvadene cream and dressing changes, per GS sign out. On POD #1-2, she was noted to have continued sedation, unable to ambulate, and decrease PO intake. On POD #3, the patient was less sedated and stable for DC. However, the family refused DC as they felt the patient was not at her baseline. On POD #4 neurological status was assessed with CT which was inconclusive and MRI was recommended. MRI showed multiple areas of restricted diffusion of the L brain concerning for acute/subacute infarction. Today on POD#6, she continues to be unable to swallow or move her R side. She is alert, but does not interact with the staff. Per staff report, prior to the procedure the patient was developmentally delayed with limited speech and multiple neurologic deficits due to her impairment. She was able to move all limbs and ambulate with assistance. She was able to recall some objects and family members names. Her PCP is Dr. Aracely Pardo at the [facility], and per her last note she was able to complete ADLs, but not IADLs. Per her sister, as soon as she came out of surgery she never moved her right side or spoke. Her MRI shows acute to subacute CVA. Her sister questioned the timing of the stroke and I explained that it is difficult to know exactly when this happened. Per her sister's report, she had weakness right away. I explained that if she had a CVA during surgery it would be a very high risk of bleeding to do TPA at that time. I explained that if it was unknown exactly when the CVA happened, TPA could not have been given. Her medical team also explained the work up for stroke that was being done as well as the therapy assessments that would be done. Her sister said she would be going to [place] on discharge from the hospital and I assured her that that was a great rehab place. Review of Systems ROS Limitations: Clinical Condition (cannot speak) Past Family Social History Past Medical History - Neurocognitive impairment secondary to hydrocephalus as a child - Can understand, but verbalizes minimally (one-two words) - Can perform ADLs independently but unable to perform IADLs - Recurrent skin picking & scratching especially of legs - OCD -BRCA? Past Surgical History BL Mastectomy Allergies: Coded Allergies: No Known Allergies (Unverified , 12/30/16) Family History - Father: unknown - Mother: Hypothyroid - Sister: Breast Cancer (52) +BRCA gene - Sister: Hypothyroid - Maternal grandfather: DM - Uncle: DM Social History - Lives at home with mother and sister - Tobacco, EtOH, recreational drugs: never - Attends [employer] daily (22 years) Physical Exam Vital Signs Vital Signs Date Time Temp Pulse Resp B/P Pulse Ox O2 Delivery O2 Flow Rate FiO2 01/05/17 08:00 97.4 89 18 141/82 100 01/05/17 00:26 99.0 89 18 135/78 98 01/04/17 20:10 95.8 103 16 135/89 97 01/04/17 18:21 21 01/04/17 12:00 98.1 94 17 133/78 98 Physical Exam CONST: Well-developed, well-nourished female lying in bed in [facility]. Patient does not interact in clear words during exam but was verbalizing sounds. She was annoyed at having her eyes examined yesterday but was cooperative today. Face appears symmetric. HEENT: Atraumatic, normocephalic with EOMI grossly intact (will track people around room). PERRLA. MMM. No rhinorhea. CV: RRR with no MGR. RESP: Clear to anterior auscultation BL. No increased WOB. GI: Soft, nondistended with +BS. MSK: Diffuse atrophy of muscles. No edema or cyanosis. 2+ PT and DP BL. NEURO: Patient is alert, but unable to communicate with examiners. Patient does not spontaneously move the R upper and lower extremity, but does on the L side. Her right hand is mildly in a curled position but is able to be straightened. Her arm and leg are "floppy" when lifted and drop straight down with no resistance when released Laboratory Laboratory Tests Test 01/05/17 04:51 White Blood Count 8.3 Red Blood Count 3.94 Hemoglobin 11.9 Hematocrit 34.0 Mean Corpuscular Volume 86.1 Mean Corpuscular Hemoglobin 30.1 Mean Corpuscular Hemoglobin 34.9 Concent Red Cell Distribution Width 13.8 Platelet Count 341 Mean Platelet Volume 6.6 Neutrophils (%) (Auto) 79.6 Lymphocytes (%) (Auto) 10.1 Monocytes (%) (Auto) 7.9 Eosinophils (%) (Auto) 1.9 Basophils (%) (Auto) 0.5 Neutrophils # (Auto) 6.6 Lymphocytes # (Auto) 0.8 Monocytes # (Auto) 0.7 Eosinophils # (Auto) 0.2 Basophils # (Auto) 0.0 CBC Comment DIFF FINAL Differential Comment Sodium Level 145 Potassium Level 3.3 Chloride Level 112 Carbon Dioxide Level 20.0 Anion Gap 13 Blood Urea Nitrogen 14 Creatinine 0.57 Estimat Glomerular Filtration 113 Rate Random Glucose 93 Calcium Level 8.9 Total Bilirubin 0.5 Aspartate Amino Transf 16 (AST/SGOT) Alanine Aminotransferase 17 (ALT/SGPT) Alkaline Phosphatase 44 Total Protein 7.2 Albumin 3.3 Triglycerides Level 155 Cholesterol Level 181 LDL Cholesterol 108 HDL Cholesterol 42.0 Cholesterol/HDL Ratio 4.30 Result Diagram: 01/05/17 0451 01/05/17 0451 Imaging Last [address] 01/03/17 0000 Signed Impressions: Service Date/Time: Tuesday, January 03, 2017 14:39 - CONCLUSION: Foci of low attenuation on the left and an MRI of the brain with and without contrast is recommended for further assessment. The possibility of ischemic event and should be excluded. Ramón Newell MD Brain MRI 01/03/17 0000 Signed Impressions: Service Date/Time: Tuesday, January 03, 2017 17:53 - CONCLUSION: 1. Multiple punctate areas of restricted diffusion involving left periventricular white matter and portions of basal ganglia as well as the internal capsule region consistent with acute to subacute infarction. 2. Increased vascular enhancement in the left middle cerebral artery territory. This finding likely is from slow flow of contrast. Alex Coughlin MD Assessment and Plan Assessment and Plan Ms. Moreno is a 51 y/o CF with a PMHx of neurocognitive impairment, OCD, and breast cancer who is currently POD #6 from BL mastectomy presenting with R sided hemiparesis and aphasia secondary to ischemic stroke. Problem List: (1) Ischemic stroke Status: Acute Plan: Patient found to have ischemic stroke the MRI on postoperative day 4. Clinically patient unable to move right upper and lower extremity with aphasia. CT: Foci of low attenuation on the left. MRI of the brain with and without contrast is recommended for further assessment. MRI: Multiple punctate areas of restricted diffusion involving left periventricular white matter and portions of basal ganglia as well as the internal capsular region consistent with acute to subacute infarction. Increased vascular enhancement in the left middle cerebral artery territory. Finding likely is from slow flow of contrast. EKG sinus rhythm Echocardiogram: Pending Carotid ultrasound: fine Lipid profile: Pending Neurology consulted, appreciate recommendations Neurochecks with NIH stroke scale ordered PT/OT consulted NPO until swallow evaluation Medications: Aspirin 325 mg daily SSI per protocol Heparin 5000 units every 8 hours Avoid AMS medications -will give some pain meds (2) Breast cancer greater than or equal to 2 cm in greatest dimension Status: Acute Plan: Patient postop day 5 from bilateral mastectomy secondary to breast cancer. Patient's L upper flap had a 3X3cm area of ischemia medially that should resolve with Silvadene cream and dressing changes, per sign out Daily dressing changes with Silvadene per general surgery. (3) Neurocognitive disorder Status: Chronic Plan: Patient with neurocognitive disorder at baseline. (4) Nutrition, metabolism, and development symptoms Status: Acute Plan: Fluids: Team to add fluids if patient fails swallow evaluation Diet: Nothing by mouth until patient passes swallow evaluation Electrolytes: Within normal limits, continue to monitor DVT prophylaxis: Heparin 5000 units every 8 hours, JOSE/SCDs Prophylaxis: Tylenol 325 mg every 4 hours when necessary for pain, consider some narcotics as she just had surgery Physician Certification 2 Midnight Certification Type: Admission for Inpatient Services Order for Inpatient Services The services are ordered in accordance with Medicare regulations or non- Medicare payer requirements, as applicable. In the case of services not specified as inpatient-only, they are appropriately provided as inpatient services in accordance with the 2-midnight benchmark. Estimated LOS (days): 3 3 days is the estimated time the patient will need to remain in the hospital, assuming treatment plan goals are met and no additional complications. Post-Hospital Plan: Not yet determined Morena Crespo MD Jan 05, 2017 10:41
[2017-01-05 12:00] VITALS: BP 129/83; PULSE 87; RESP 17; TEMP 96.2; O2SAT 99
--- NOTE | 2017-01-05 12:27 | EC ---
Study Study Date:01/05/2017 STUDY CONCLUSIONS SUMMARY LEFT VENTRICLE: The cavity size was normal. Wall thickness was normal. Systolic function was normal. The estimated ejection fraction was in the range of 55% to 60%. Wall motion was normal; there were no regional wall motion abnormalities. If LV function is below 40, please consider prescribing an ACEI or ARB or document rationale for non-use. PROCEDURE DATA STUDY STATUS: Elective. Procedure: Transthoracic echocardiography. Image quality was good. Scanning was performed from the parasternal, apical, and subcostal acoustic windows. Study completion: The patient tolerated the procedure well. Transthoracic echocardiography. M-mode, complete 2D, complete spectral Doppler, and color Doppler. Height: Height: 59in. Weight: Weight: 130.7lb. Body mass index: BMI: 26.5kg/m^2. Body surface area: BSA: 1.54m^2. Patient status: Inpatient. CARDIAC ANATOMY LEFT VENTRICLE: The cavity size was normal. Wall thickness was normal. Systolic function was normal. The estimated ejection fraction was in the range of 55% to 60%. Wall motion was normal; there were no regional wall motion abnormalities. AORTIC VALVE: Trileaflet; normal thickness leaflets. Doppler: Transvalvular velocity was within the normal range. There was no stenosis. No regurgitation. AORTA: Aortic root: The aortic root was normal in size. MITRAL VALVE: Structurally normal valve. Doppler: Transvalvular velocity was within the normal range. There was no evidence for stenosis. No regurgitation. LEFT ATRIUM: The atrium was normal in size. RIGHT VENTRICLE: The cavity size was normal. Wall thickness was normal. PULMONIC VALVE: Doppler: Transvalvular velocity was within the normal range. There was no evidence for stenosis. No regurgitation. TRICUSPID VALVE: Structurally normal valve. Doppler: Transvalvular velocity was within the normal range. No regurgitation. PULMONARY ARTERY: The main pulmonary artery was normal-sized. Systolic pressure was within the normal range. RIGHT ATRIUM: The atrium was normal in size. PERICARDIUM: There was no pericardial effusion. SYSTEMIC VEINS: Inferior vena cava: The vessel was normal in size. Patient weight: 130.7lb _Ejection fraction:_ 65-75% _Fractional shortening:_ 32% up to 5Kg 5-11.5Kg 11.6-22.9Kg 23-45Kg 45-57Kg Aortic Root 7-13 <17 13-22 17-27 17-27 LA diam 6-13 <23 24-38 33-47 37-40 RVID 10-17 7-15 7-15 7-18 8-17 LVIDd 12-22 <32 24-38 33-47 37-40 LVPW 2-4 3-6 5-7 6-8 7-8 IVS 2-4 3-6 5-7 6-8 7-8 BASIC MEASUREMENTS ADULT NORMAL Left ventricle LV internal dimension, ED, chordal level, 45.9 mm 43-52 PLAX LV internal dimension, ES, chordal level, 33 mm 23-38 PLAX Fractional shortening, chordal level, PLAX *28 % >29 LV posterior wall thickness, ED 9.07 mm IVS/LVPW ratio, ED 0.99 <1.3 Ventricular septum Septal thickness, ED 8.98 mm Aortic valve Leaflet separation 19 mm 15-26 Left atrium Anterior-posterior dimension 26 mm Anterior-posterior dimension index 1.69 cm/m^2 <2.2 Right ventricle RV internal dimension, ED, PLAX 19.2 mm 19-38 BASIC MEASUREMENTS ADULT NORMAL Aortic valve Leaflet separation 19 mm 15-26 Aorta Root diameter, ED 27 mm 20-37 DOPPLER MEASUREMENTS ADULT NORMAL Pulmonic valve Peak velocity, S 99.1 cm/s LEGEND: Mean values are shown as u=mean value. Asterisk (*) lawler values outside specified normal range. Prepared and signed by Emile Patiño [id number]
--- NOTE | 2017-01-05 13:40 | HHI.PR ---
Subjective Subjective Notes More alert. Interacting and trying to verbalize. Still unable to move right side. Objective Vitals/I&O Vital Signs Date Time Temp Pulse Resp B/P Pulse Ox O2 Delivery O2 Flow Rate FiO2 01/05/17 12:00 96.2 87 17 129/83 99 01/04/17 18:21 21 01/01/17 10:28 Nasal Cannula PO 540cc. UOP X 7. Drain 35L 20 R. Labs Laboratory Tests Test 01/05/17 04:51 White Blood Count 8.3 Red Blood Count 3.94 Hemoglobin 11.9 Hematocrit 34.0 Mean Corpuscular Volume 86.1 Mean Corpuscular Hemoglobin 30.1 Mean Corpuscular Hemoglobin 34.9 Concent Red Cell Distribution Width 13.8 Platelet Count 341 Mean Platelet Volume 6.6 Neutrophils (%) (Auto) 79.6 Lymphocytes (%) (Auto) 10.1 Monocytes (%) (Auto) 7.9 Eosinophils (%) (Auto) 1.9 Basophils (%) (Auto) 0.5 Neutrophils # (Auto) 6.6 Lymphocytes # (Auto) 0.8 Monocytes # (Auto) 0.7 Eosinophils # (Auto) 0.2 Basophils # (Auto) 0.0 CBC Comment DIFF FINAL Differential Comment Sodium Level 145 Potassium Level 3.3 Chloride Level 112 Carbon Dioxide Level 20.0 Anion Gap 13 Blood Urea Nitrogen 14 Creatinine 0.57 Estimat Glomerular Filtration 113 Rate Random Glucose 93 Calcium Level 8.9 Total Bilirubin 0.5 Aspartate Amino Transf 16 (AST/SGOT) Alanine Aminotransferase 17 (ALT/SGPT) Alkaline Phosphatase 44 Total Protein 7.2 Albumin 3.3 Triglycerides Level 155 Cholesterol Level 181 LDL Cholesterol 108 HDL Cholesterol 42.0 Cholesterol/HDL Ratio 4.30 Radiology Chest Xray 12/30 showed good port position and no pneumothorax. Cardiovascular: Regular Lungs: Clear Narrative Exam Chest wall flaps clean. No infection or seroma. Left upper flap with 3 X 3 cm area ischemia medially. R chest wall flap clean and viable. Unable to lift right arm or leg. A/P Assessment and Plan Stable and less sedated. Imaging consistent with infarct and clinical exam supports this. Will transfer care to family medicine and consult neurology. Sharla for left chest flap. Discharge Planning Probable transfer to rehab facility post stroke. Stefani Corrales MD Jan 05, 2017 13:40
--- NOTE | 2017-01-05 15:43 | OTSOAPIP ---
TIME SESSION COMPLETED: AM/PM TREATMENT TIME: 0 MINS. CHART REVIEWED. PATIENT WAS NOT AVAILABLE X2, FIRST NURSING WAS PERFORMING WOUND CARE THE SECOND TIME PHYSICIAN WAS MANAGING BOLA DRAINS AT BED SIDE. PLAN: [facility] SEE PATIENT WHEN ABLE OR NEXT TREATMENT DAY. Therapist: DILAN MAJANO OTR/L Signature on file
[2017-01-05 16:00] VITALS: BP 146/95; PULSE 84; RESP 19; TEMP 97.4; O2SAT 99
--- NOTE | 2017-01-05 16:23 | PD.CONS ---
[facility] Service Rehabilitation Medicine Consult Requested By Sharla Bolden MD Reason for Consult Comprehensive rehabilitation evaluation. Primary Care Physician Stefani Corrales MD History of Present Illness December is a 51-year-old female with a history of right large subareolar breast cancer BRCA positive to underwent bilateral mastectomy 12/30/16. On she was noted to have right sided weakness and was unable to ambulate. Brain MRI 01/03/17 showed multiple punctate areas of restricted diffusion in the left periventricular white matter portion of the basal ganglia and internal capsule which was acutesubacute. been started on aspirin. Review of Systems ROS Limitations: Clinical Condition, Poor Historian Past Family Social History Allergies: Coded Allergies: No Known Allergies (Unverified , 12/30/16) Past Medical History Breast cancer Developmental delay OCD Past Surgical History Bilateral mastectomy Current Medications Current Medications Medications (Trade) Dose Ordered Sig/Sandi Route Start Time Stop Time Status Last Admin (Tylenol) 325 mg Q4H PRN PO 01/01/17 13:30 01/03/17 12:13 (Silvadene 1% Cream (400 Gm)) 1 applic DAILY TOPICAL 01/04/17 16:00 01/05/17 09:00 (NS Flush) 2 ml BID IV FLUSH 01/04/17 21:00 01/05/17 09:00 (NS Flush) 2 ml UNSCH PRN IV FLUSH 01/04/17 16:15 (Aspirin) 325 mg DAILY PO 01/04/17 16:15 01/05/17 09:00 (D50w (Vial) Inj) 25 ml UNSCH PRN IV PUSH 01/04/17 16:15 (Glucagon Inj) 1 mg UNSCH PRN IM/SQ 01/04/17 16:15 Heparin Sodium (Porcine) 5000 units 5,000 units Q8HR SQ 01/04/17 22:00 01/05/17 14:00 (NS + KCl 20 Meq Inj) 1,000 ml @ 84 mls/hr [id number] IV 01/05/17 08:00 01/05/17 08:00 (Percocet 5-325 Mg) 1 tab Q4H PRN PO 01/05/17 10:30 (Morphine Inj) 1 mg Q4HR PRN IV PUSH 01/05/17 10:30 Family History Father: Unknown Mother: Hypothyroidism Social History Lives with mother and sister in [place], [place]. Prior to admission patient was able to ambulate and perform basic ADLs but required supervision for higher- level ADLs. Exam I&O / VS 01/04/17 01/04/17 01/05/17 15:00 23:00 07:00 Intake Total 60 ml 240 ml 240 ml Output Total 30 ml 25 ml Balance 60 ml 210 ml 215 ml Intake Oral 60 ml 240 ml 240 ml Drainage Total 30 ml 25 ml # Voids 2 2 3 # Bowel Movements 0 Vital Signs Date Time Temp Pulse Resp B/P Pulse Ox O2 Delivery O2 Flow Rate FiO2 01/05/17 13:25 Nasal Cannula 01/05/17 12:00 96.2 87 17 129/83 99 01/05/17 08:00 97.4 89 18 141/82 100 01/05/17 00:26 99.0 89 18 135/78 98 01/04/17 20:10 95.8 103 16 135/89 97 01/04/17 18:21 21 General: No acute distress Respiratory: Lungs CTA, Non-labored respirations, BS equal Gastrointestinal: Positive Bowel Sounds, Non-Distended Cardiovascular: Normal rate, Regular Rhythm Musculoskeletal: ROM (grossly within normal limits) Psychiatric: Other (patient is not restless or agitated but is not cooperative with exam) Neurologic: Speech (not verbalizing) Motor: Right Upper Extremity (no spontaneous or voluntary movement), Left Upper Extremity (intermittent purposeful voluntary movement), Right Lower Extremity (no spontaneous or voluntary movement), Left Lower Extremity Sensory Unable to assess Babinski: Positive (right) Clonus: Negative Assessment and Plan Diagnosis: (1) Ischemic stroke Assessment 1. Left CVA with right hemiparesis and aphasia/dysphagia 2. Impaired mobility/ADLs and communication 3. Developmental delay with neurocognitive impairment 4. Breast cancer status post bilateral mastectomy 12/30/16 Plan 1. Physical therapy as mobilizing and patient is now max assist for bed mobility. Progressed up to sitting as tolerated 2. Occupational therapy is addressing ADLs and currently dependent 3. Speech therapy has addressed swallowing tolerating pured diet with thin liquids. Cognition and communication to be addressed 4. Monitor carefully for fall prevention 5. Receiving heparin for VTE prophylaxis 6. Will follow while hospitalized and at discharge as appropriate Thank you for this consult Robyn Alfaro MD Jan 05, 2017 16:23
[2017-01-05 16:24] LABS: HEMOGLOBIN A1a 0.9 %; HEMOGLOBIN A1b 0.7 %; HEMOGLOBIN Ao 88.1 %; HEMOGLOBIN F 0.7 %; HEMOGLOBIN LA1C 1.6 %; HEMOGLOBIN P3 3.1 %
--- NOTE | 2017-01-05 17:29 | EKG ---
Date Performed: 01/04/2017 Time Performed: 18:07:48 PTAGE: 51 years EKG: Sinus rhythm NORMAL ECG NO PREVIOUS TRACING DOCTOR: Joselo Negro Interpretating Date/Time 01/05/2017 17:27:40
[2017-01-05 20:00] VITALS: BP 128/76; PULSE 82; RESP 18; TEMP 97; O2SAT 97
--- NOTE | 2017-01-05 21:17 | HHI.PR ---
Review/Management Diagnosis - Acute ischemic stroke in the left MCA territory. - Possible etiology is thromboembolic phenomenon. - Breast cancer status post bilateral mastectomy. Plan - Neuro checks q4 hourly. - Aspirin 325 mg daily. - Speech therapy, recommendations are appreciated. - PT, OT recommendations are appreciated. - DVT prophylaxis. 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 - Please call for questions Diagnosis/Plan: Subjective Subjective Comments patient is more awake and attentive today No acute events reported Global dysphasia, non-verbal CUS with no evidence of hemodynamically significant stenosis Cardiac ECHO is unremarkable Active Medications Current Medications Medications (Trade) Dose Ordered Sig/Sandi Route Start Time Stop Time Status Last Admin (Tylenol) 325 mg Q4H PRN PO 01/01/17 13:30 01/03/17 12:13 (Silvadene 1% Cream (400 Gm)) 1 applic DAILY TOPICAL 01/04/17 16:00 01/05/17 09:00 (NS Flush) 2 ml BID IV FLUSH 01/04/17 21:00 01/05/17 09:00 (NS Flush) 2 ml UNSCH PRN IV FLUSH 01/04/17 16:15 (Aspirin) 325 mg DAILY PO 01/04/17 16:15 01/05/17 09:00 (D50w (Vial) Inj) 25 ml UNSCH PRN IV PUSH 01/04/17 16:15 (Glucagon Inj) 1 mg UNSCH PRN IM/SQ 01/04/17 16:15 Heparin Sodium (Porcine) 5000 units 5,000 units Q8HR SQ 01/04/17 22:00 01/05/17 21:01 (NS + KCl 20 Meq Inj) 1,000 ml @ 84 mls/hr [id number] IV 01/05/17 08:00 01/05/17 21:02 (Percocet 5-325 Mg) 1 tab Q4H PRN PO 01/05/17 10:30 (Morphine Inj) 1 mg Q4HR PRN IV PUSH 01/05/17 10:30 Allergies Allergies Coded Allergies No Known Allergies (Unverified12/30/16) Exam I&O / VS 01/04/17 01/04/17 01/05/17 15:00 23:00 07:00 Intake Total 60 ml 240 ml 240 ml Output Total 30 ml 25 ml Balance 60 ml 210 ml 215 ml Intake Oral 60 ml 240 ml 240 ml Drainage Total 30 ml 25 ml # Voids 2 2 3 # Bowel Movements 0 Vital Signs Date Time Temp Pulse Resp B/P Pulse Ox O2 Delivery O2 Flow Rate FiO2 01/05/17 20:00 97.0 82 18 128/76 97 01/05/17 16:00 97.4 84 19 146/95 99 01/05/17 13:25 Nasal Cannula 01/05/17 12:00 96.2 87 17 129/83 99 01/05/17 08:00 97.4 89 18 141/82 100 01/05/17 00:26 99.0 89 18 135/78 98 Respiratory: Lungs CTA, Non-labored respirations, BS equal Cardiology: Normal rate, Regular Rhythm Musculoskeletal: ROM (grossly within normal limits) Exam Comments GENERAL: The patient is awake, alert and nonverbal, dysphasic. HEENT: Atraumatic, normocephalic. Unable to assess hearing and vision due to dysphasia. CARDIOVASCULAR: Regular rate and rhythm. RESPIRATORY: Clear to auscultation. No wheezes. GI. Soft abdomen, nontender. MUSCULOSKELETAL: The chest is wrapped with gauze and plaster. Clear right sided weakness and facial droop. NEUROLOGIC: The patient is awake, global dysphasia, subtle right facial palsy, improved to initial assessment yesterday Tracks objects in the room. Follows verbal commands, "squeeze my hands on the left", hold her toy cars; unable to move the entire right-sided flaccid hemiparesis 0/5 right upper and lower extremity with severe hypotonia. Left upper and lower extremity normal tone. Intermittently moves the left upper and lower extremity. Reflexes 1+ on the left side upper and lower extremity with Babinski on the right. Left side 2+. Plantar downgoing. Unable to assess sensation and cerebellar function due to dysphasia. Objective Radiology Results Last 72 hours Impressions Carotid Artery Ultrasound 01/04/17 0000 Signed Impressions: Service Date/Time: Wednesday, January 04, 2017 23:01 - CONCLUSION: No hemodynamically significant stenosis in either carotid artery. Georges Lee MD Head CT 01/03/17 0000 Signed Impressions: Service Date/Time: Tuesday, January 03, 2017 14:39 - CONCLUSION: Foci of low attenuation on the left and an MRI of the brain with and without contrast is recommended for further assessment. The possibility of ischemic event and should be excluded. Ramón Newell MD Brain MRI 01/03/17 0000 Signed Impressions: Service Date/Time: Tuesday, January 03, 2017 17:53 - CONCLUSION: 1. Multiple punctate areas of restricted diffusion involving left periventricular white matter and portions of basal ganglia as well as the internal capsule region consistent with acute to subacute infarction. 2. Increased vascular enhancement in the left middle cerebral artery territory. This finding likely is from slow flow of contrast. Alex Coughlin MD Micro and Labs Laboratory Tests Test 01/05/17 04:51 White Blood Count 8.3 Red Blood Count 3.94 Hemoglobin 11.9 Hematocrit 34.0 Mean Corpuscular Volume 86.1 Mean Corpuscular Hemoglobin 30.1 Mean Corpuscular Hemoglobin 34.9 Concent Red Cell Distribution Width 13.8 Platelet Count 341 Mean Platelet Volume 6.6 Neutrophils (%) (Auto) 79.6 Lymphocytes (%) (Auto) 10.1 Monocytes (%) (Auto) 7.9 Eosinophils (%) (Auto) 1.9 Basophils (%) (Auto) 0.5 Neutrophils # (Auto) 6.6 Lymphocytes # (Auto) 0.8 Monocytes # (Auto) 0.7 Eosinophils # (Auto) 0.2 Basophils # (Auto) 0.0 CBC Comment DIFF FINAL Differential Comment Sodium Level 145 Potassium Level 3.3 Chloride Level 112 Carbon Dioxide Level 20.0 Anion Gap 13 Blood Urea Nitrogen 14 Creatinine 0.57 Estimat Glomerular Filtration 113 Rate Random Glucose 93 Hemoglobin A1c 4.5 Calcium Level 8.9 Total Bilirubin 0.5 Aspartate Amino Transf 16 (AST/SGOT) Alanine Aminotransferase 17 (ALT/SGPT) Alkaline Phosphatase 44 Total Protein 7.2 Albumin 3.3 Triglycerides Level 155 Cholesterol Level 181 LDL Cholesterol 108 HDL Cholesterol 42.0 Cholesterol/HDL Ratio 4.30 Jb Rincon MD Jan 05, 2017 21:17
[2017-01-06] VITALS: BP 118/74; PULSE 88; RESP 18; TEMP 96.6; O2SAT 98
[2017-01-06] MEDS: MORPHINE SULFATE 4 MG/ML INJ IV PUSH PRN ×2 (00:09→11:20)
[2017-01-06] MEDS: INSULIN ASPART SUPPLEMENTAL SCALE SQ SCH ×3 (05:04→21:00)
[2017-01-06] MEDS: HEPARIN SODIUM - SQ 10,000 UNITS/ML VIAL SQ SCH ×3 (05:04→21:56)
[2017-01-06 06:13] LABS: BICARBONATE 25.8 MEQ/L (21.0-32.0); MAGNESIUM 1.9 MG/DL (1.5-2.5); POTASSIUM 3.8 MEQ/L (3.5-5.1)
[2017-01-06 08:05] VITALS: BP 136/84; PULSE 85; RESP 17; TEMP 97.5; O2SAT 97
[2017-01-06] MEDS: SILVER SULFADIAZINE 1% CR 400 GM JAR TOPICAL SCH (10:38)
[2017-01-06] MEDS: ASPIRIN 325 MG TAB PO SCH (10:38)
[2017-01-06] MEDS: SODIUM CHLORIDE 0.9% FLUSH 10 ML FLUSH IV FLUSH SCH ×2 (10:38→21:00)
[2017-01-06] MEDS: NS + KCL 20 MEQ INJ 1,000 ML IV SCH ×2 (10:39→21:58)
[2017-01-06 12:00] VITALS: BP 141/73; PULSE 98; RESP 17; TEMP 96.4; O2SAT 97
--- NOTE | 2017-01-06 12:13 | HHI.PR ---
Subjective Subjective Notes She is in bed, not very communicative. Objective Vitals/I&O Vital Signs Date Time Temp Pulse Resp B/P Pulse Ox O2 Delivery O2 Flow Rate FiO2 01/06/17 08:05 97.5 85 17 136/84 97 01/05/17 13:25 Nasal Cannula 01/04/17 18:21 21 Labs Laboratory Tests Test 01/06/17 05:26 Sodium Level 146 Potassium Level 3.8 Chloride Level 114 Carbon Dioxide Level 25.8 Anion Gap 6 Blood Urea Nitrogen 13 Creatinine 0.51 Estimat Glomerular Filtration 128 Rate Random Glucose 96 Calcium Level 8.3 Magnesium Level 1.9 Radiology Chest Xray 12/30 showed good port position and no pneumothorax. Narrative Exam I examined incisions. Multiple areas of ecchymoses/possible epidermolysis, otherwise c/d/i, Silvadene on areas of wound A/P Assessment and Plan S/p juan manuel mastectomy Areas of epidermolysis, continue to monitor. Silvadene. Remove PRASHANT and use dry dressings only. Tae Rawls MD Jan 06, 2017 12:13
--- NOTE | 2017-01-06 13:41 | HHI.FPPN ---
Subjective Remarks Spoke extensively to Ms Moreno sister who is always at her bedside with the exception of a few hours per day. Her sister is not pleased about Ms Moreno' CVA and her care. I have explained that TPA couldn't be done right after surgery anyway but that we would continue to do everything possible to help her with recovery. She wants her sister to go to [place] and drove over there yesterday and spoke to them and was assured that they believed she could be accepted there. She has had PT and speech and has started a diet. OT has been requested as that is part of the evaluation. Her sister was upset about the extent of her stroke as she is flaccid on the right and can make noise but still not intelligible speech. I explained to her sister that her age and female sex can lead to a better post stroke outcome and there can be quite a bit of recovery depending on the person and especially the rehab which is so very important. But we cannot know how much recovery she may have at this point. Objective Vitals Vital Signs Date Time Temp Pulse Resp B/P Pulse Ox O2 Delivery O2 Flow Rate FiO2 01/06/17 12:00 96.4 98 17 141/73 97 01/06/17 08:05 97.5 85 17 136/84 97 01/06/17 00:00 96.6 88 18 118/74 98 01/05/17 20:00 97.0 82 18 128/76 97 01/05/17 16:00 97.4 84 19 146/95 99 I/O 01/05/17 01/05/17 01/05/17 01/06/17 01/06/17 01/06/17 07:00 15:00 23:00 07:00 15:00 23:00 Intake Total 240 ml 0 ml 949 ml 684 ml Output Total 25 ml 15 ml 20 ml Balance 215 ml 0 ml 934 ml 664 ml Intake Oral 240 ml 0 ml 120 ml 0 ml IV Total 829 ml 684 ml Drainage Total 25 ml 15 ml 20 ml # Voids 3 3 1 3 # Bowel Movements 0 0 0 Result Diagram: 01/05/17 0451 01/06/17 0526 A/P Assessment and Plan Ms. Moreno is a 51 y/o CF with a PMHx of neurocognitive impairment, OCD, and breast cancer who is currently POD #6 from BL mastectomy presenting with R sided hemiparesis and aphasia secondary to ischemic stroke. Problem List: (1) Ischemic stroke Status: Acute Plan: Patient found to have ischemic stroke by MRI on postoperative day 4. Clinically patient unable to move right upper and lower extremity with aphasia. CT: Foci of low attenuation on the left. MRI of the brain with and without contrast is recommended for further assessment. MRI: Multiple punctate areas of restricted diffusion involving left periventricular white matter and portions of basal ganglia as well as the internal capsular region consistent with acute to subacute infarction. Increased vascular enhancement in the left middle cerebral artery territory. Finding likely is from slow flow of contrast. EKG sinus rhythm Echocardiogram: normal good EF Carotid ultrasound: fine Lipid profile: resulted, will need statin to help prevent future strokes Neurology consulted, appreciate recommendations Neurochecks with NIH stroke scale ordered PT saw her/OT consulted starting pureed diet Medications: Aspirin 325 mg daily SSI per protocol Heparin 5000 units every 8 hours Avoid AMS medications -will give some pain meds (2) Breast cancer greater than or equal to 2 cm in greatest dimension Status: Acute Plan: Patient from bilateral mastectomy secondary to breast cancer. Patient's L upper flap had a 3X3cm area of ischemia medially that should resolve with Silvadene cream and dressing changes, per GS sign out. she has a FH of BRCA. consider genetic testing as she may need her ovaries removed. Oncology can assist with that She has a port and was to get chemo but this will be started only when she is ready after her CVA Daily dressing changes with Silvadene per general surgery. (3) Neurocognitive disorder Status: Chronic Plan: Patient with neurocognitive disorder at baseline. She would normally speak a few words, not fluent sentences but would listen and be able to follow commands she was able to ambulate and hopefully can improve with rehab (4) Nutrition, metabolism, and development symptoms Status: Acute Plan: Fluids: Team added fluids as she cannot drink some liquids so will heplock once she takes better po Diet: heart healthy with thickened liquids Electrolytes: Within normal limits, continue to monitor DVT prophylaxis: Heparin 5000 units every 8 hours, JOSE/SCDs Prophylaxis: Tylenol 325 mg every 4 hours when necessary for pain, consider some narcotics as she just had surgery Morena Crespo MD Jan 06, 2017 13:41
[2017-01-06 16:00] VITALS: BP 129/76; PULSE 65; RESP 16; TEMP 95.4; O2SAT 98
[2017-01-06 20:00] VITALS: BP 111/71; PULSE 83; RESP 20; TEMP 98.6; O2SAT 99
[2017-01-07] VITALS: BP 142/88; PULSE 72; RESP 20; TEMP 98.1; O2SAT 99
[2017-01-07 04:00] VITALS: BP 150/90; PULSE 79; RESP 20; TEMP 98.8; O2SAT 98
[2017-01-07] MEDS: MORPHINE SULFATE 4 MG/ML INJ IV PUSH PRN (05:02)
[2017-01-07] MEDS: HEPARIN SODIUM - SQ 10,000 UNITS/ML VIAL SQ SCH (05:03)
[2017-01-07] MEDS: INSULIN ASPART SUPPLEMENTAL SCALE SQ SCH (05:11)
[2017-01-07 05:45] LABS: AUTOMATED NEUTROPHIL # 4.4 TH/MM3 (1.8-7.7); BASOPHIL % 0.2 % (0.0-2.0); EOSINOPHIL # 0.4 TH/MM3 (0-0.4); EOSINOPHIL % 5.9 % (0.0-4.0); HEMO FLAGS DIFF FINAL; LYMPH % 15.9 % (9.0-44.0); MEAN CELL VOLUME 86.9 FL (80.0-100.0); MEAN CORPUSCULAR HEMOGLOBIN 28.9 PG (27.0-34.0); MEAN CORPUSCULAR HGB CONC 33.3 % (32.0-36.0); MONO % 8.4 % (0.0-8.0); NEUT % 69.6 % (16.0-70.0); PLATELET COUNT 262 TH/MM3 (150-450); RED CELL DISTRIBUTION WIDTH 13.9 % (11.6-17.2); WHITE BLOOD COUNT 6.3 TH/MM3 (4.0-11.0)
[2017-01-07 06:33] LABS: BICARBONATE 26.7 MEQ/L (21.0-32.0)
[2017-01-07 06:36] LABS: POTASSIUM 4.1 MEQ/L (3.5-5.1)
[2017-01-07 08:00] VITALS: BP 140/90; PULSE 84; RESP 19; TEMP 97.5; O2SAT 98
[2017-01-07] MEDS ORDERED: OXYC1TAB63 PO (08:56)
[2017-01-07] MEDS ORDERED: ASPI325T PO (08:56)
[2017-01-07] MEDS ORDERED: PRAV40TA2 PO (08:56)
[2017-01-07] MEDS: ASPIRIN 325 MG TAB PO SCH (09:00)
--- NOTE | 2017-01-07 09:00 | HHI.DS ---
Discharge Summary Admission Date Jan 04, 2017 at 16:16 Discharge Date: Jan 07, 2017 Admitting Diagnosis (1) Ischemic stroke Diagnosis: Principal Plan: Patient found to have ischemic stroke by MRI on postoperative day 4. Clinically patient unable to move right upper and lower extremity with aphasia. CT: Foci of low attenuation on the left. MRI of the brain with and without contrast is recommended for further assessment. MRI: Multiple punctate areas of restricted diffusion involving left periventricular white matter and portions of basal ganglia as well as the internal capsular region consistent with acute to subacute infarction. Increased vascular enhancement in the left middle cerebral artery territory. Finding likely is from slow flow of contrast. EKG sinus rhythm Echocardiogram: normal good EF Carotid ultrasound: fine Lipid profile: resulted, will need statin to help prevent future strokes Neurology consulted, appreciate recommendations Neurochecks with NIH stroke scale ordered PT saw her/OT consulted starting pureed diet Medications: Aspirin 325 mg daily SSI per protocol Heparin 5000 units every 8 hours Avoid AMS medications -will give some pain meds (2) Breast cancer greater than or equal to 2 cm in greatest dimension Diagnosis: Principal Plan: Patient from bilateral mastectomy secondary to breast cancer. Patient's L upper flap had a 3X3cm area of ischemia medially that should resolve with Silvadene cream and dressing changes, per GS sign out. she has a FH of BRCA. consider genetic testing as she may need her ovaries removed. Oncology can assist with that She has a port and was to get chemo but this will be started only when she is ready after her CVA Daily dressing changes with Silvadene per general surgery. (3) Neurocognitive disorder Diagnosis: Secondary Plan: Patient with neurocognitive disorder at baseline. She would normally speak a few words, not fluent sentences but would listen and be able to follow commands she was able to ambulate and hopefully can improve with rehab (4) Nutrition, metabolism, and development symptoms Diagnosis: Principal Plan: Fluids: Team added fluids as she cannot drink some liquids so will heplock once she takes better po Diet: heart healthy with thickened liquids Electrolytes: Within normal limits, continue to monitor DVT prophylaxis: Heparin 5000 units every 8 hours, JOSE/SCDs Prophylaxis: Tylenol 325 mg every 4 hours when necessary for pain, consider some narcotics as she just had surgery Brief History Transition of Care H/P: Ms. Moreno is a 51 y/o CF with a PMHx of neurocognitive impairment, OCD, and breast cancer who is currently POD #6 from BL mastectomy presenting with R sided hemiparesis and aphasia. History was given by her sister who was at her bedside today. Medical team was notified yesterday morning that the patient would be transferred to the Family Medicine service by Surgery for continued care. The patient's mastectomy procedure was without complication. It was noted that her L upper flap had a 3X3cm area of ischemia medially that should resolve with Silvadene cream and dressing changes, per GS sign out. On POD #1-2, she was noted to have continued sedation, unable to ambulate, and decrease PO intake. On POD #3, the patient was less sedated and stable for DC. However, the family refused DC as they felt the patient was not at her baseline. On POD #4 neurological status was assessed with CT which was inconclusive and MRI was recommended. MRI showed multiple areas of restricted diffusion of the L brain concerning for acute/subacute infarction. Today on POD#6, she continues to be unable to swallow or move her R side. She is alert, but does not interact with the staff. Per staff report, prior to the procedure the patient was developmentally delayed with limited speech and multiple neurologic deficits due to her impairment. She was able to move all limbs and ambulate with assistance. She was able to recall some objects and family members names. Her PCP is Dr. Aracely Pardo at the [facility], and per her last note she was able to complete ADLs, but not IADLs. Per her sister, as soon as she came out of surgery she never moved her right side or spoke. Her MRI shows acute to subacute CVA. Her sister questioned the timing of the stroke and I explained that it is difficult to know exactly when this happened. Per her sister's report, she had weakness right away. I explained that if she had a CVA during surgery it would be a very high risk of bleeding to do TPA at that time. I explained that if it was unknown exactly when the CVA happened, TPA could not have been given. Her medical team also explained the work up for stroke that was being done as well as the therapy assessments that would be done. Her sister said she would be going to [facility] on discharge from the hospital and I assured her that that was a great rehab place. CBC/BMP: 01/07/17 0500 01/07/17 0500 Significant Findings Laboratory Tests Test 01/05/17 01/06/17 01/07/17 04:51 05:26 05:00 Red Blood Count 3.94 MIL/MM3 3.80 MIL/MM3 (4.00-5.30) (4.00-5.30) Hematocrit 34.0 % 33.0 % (35.0-46.0) (35.0-46.0) Mean Platelet Volume 6.6 FL (7.0-11.0) Neutrophils (%) (Auto) 79.6 % (16.0-70.0) Lymphocytes # (Auto) 0.8 TH/MM3 (1.0-4.8) Potassium Level 3.3 MEQ/L (3.5-5.1) Chloride Level 112 MEQ/L 114 MEQ/L 109 MEQ/L (98-107) (98-107) (98-107) Carbon Dioxide Level 20.0 MEQ/L (21.0-32.0) Alkaline Phosphatase 44 U/L (45-117) Albumin 3.3 GM/DL (3.4-5.0) Triglycerides Level 155 MG/DL (42-150) LDL Cholesterol 108 MG/DL (0-99) Sodium Level 146 MEQ/L (136-145) Calcium Level 8.3 MG/DL 8.3 MG/DL (8.5-10.1) (8.5-10.1) Hemoglobin 11.0 GM/DL (11.6-15.3) Monocytes (%) (Auto) 8.4 % (0.0-8.0) Eosinophils (%) (Auto) 5.9 % (0.0-4.0) Creatinine 0.48 MG/DL (0.50-1.00) Hospital Course Medical team notified on 01/04/17 patient would be transferred to the Family Medicine service by General Surgery for continued care. The patient's mastectomy procedure was without complication; please see general surgery's discharge summary for procedure details. It was noted that her L upper flap had a 3X3cm area of ischemia medially that should resolve with Silvadene cream and dressing changes, per GS sign out. On POD #1-2, she was noted to have continued sedation, unable to ambulate, and decrease PO intake. On POD #3, the patient was less sedated and stable for DC. However, the family refused DC as they felt the patient was not at her baseline. On POD #4 neurological status was assessed with CT which was inconclusive and MRI was recommended. MRI showed multiple areas of restricted diffusion of the L brain concerning for acute/subacute infarction. On POD#5, she continued to be unable to swallow or house mover helper her R side. POD #6-8, she was cleared by speech therapy for a pureed diet with thin liquids which she has tolerated well. She continues to not be able to house mover helper her R side, however she is able to make incoherent, audible noises which is an improvement from her post-operative state. She was accepted to inpatient rehab and was discharged with PT/OT on 4/15/17. She was instructed to follow up with Neurology and her PCP in 2 weeks. She was also started on Pravastatin and ASA due to her ischemic stroke. Pt Condition on Discharge: Stable Discharge Disposition: Discharge to SNF Discharge Instructions DIET: Follow Instructions for: As Tolerated, No Restrictions Speech Therapy-Diet Recommends: Pureed Activities you can perform: Shower Only-No Bath Follow up Referrals: Home Health Neurology - 2 Weeks PCP Follow-up - 2 Weeks Physical Medicine & Rehab - 3 Months with Robyn Alfaro MD New Medications: Pravastatin (Pravastatin) 40 Mg Tab 40 MG PO DAILY Cholesterol Management #30 Ref 1 TAB Aspirin (Aspirin) 325 Mg Tab 325 MG PO DAILY #30 Ref 1 TAB Oxycodone-Acetaminophen (Oxycodone-Acetaminophen) 5-325 mg Tab 1 TAB PO Q6HR PRN PAIN SCALE 5 TO 10 #20 TAB Continued Medications: Adhesive Bandages (Adhesive Pads/Medium/2"X3) 1 Pad Pad BANDAGE EXT DAILY Apply to skin daily to cover wounds. Change after bathing. Keep clean/dry. #30 Ref 6 Adhesive Bandages (Adhesive Pads/Large/3"X4") 1 Pad Pad BANDAGE EXT DAILY Apply daily to cover wounds. Change after bathing. Keep clean /dry. #30 Ref 6 Adhesive Bandages (Band-Aid Flexible Fabric) 1 Mis Mis UNITS EXT BID Apply to small wounds/abrasians as needed. Change after bathing. Keep clean/dry. #200 Ref 6 Adhesive Tape (Clear Tape 1"X10yds) 1 Tap Tap UNITS EXT DAILY Use with each dressing change to keep bandages in place. #30 Ref 6 Band-Aid Yelena Rolled Gauze (Band-Aid Yelena Rolled Gauze) 1 Mis Mis 1 BANDAGE .ROUTE DIRECTED Change bandage every 1-2 days to keep wounds clean/ dry. #30 Ref 6 BOX Elastic Bandages & Supports (Coban Action Wrap/Blue/3") 1 Mis Mis UNITS EXT EVERY OTHER DAY Apply daily over bandages/gauze to prevent removal of bandages by patient. #15 Ref 6 Gauze Pads & Dressings (Curity Gauze Pads 4"X4" 1) 1 Pad Pad PAD EXT DAILY Apply daily to cover wounds. Change after bathing. Keep clean/ dry. #30 Ref 6 Jefry Lewis MD R1 Jan 07, 2017 09:00
--- NOTE | 2017-01-07 09:14 | HHI.DCPOC ---
Discharge Care Plan Diagnosis: (1) Ischemic stroke (2) Breast cancer greater than or equal to 2 cm in greatest dimension Goals to Promote Your Health * To prevent worsening of your condition and complications * To maintain your health at the optimal level Directions to Meet Your Goals Take your medications as prescribed Follow your dietary instruction Follow activity as directed Keep your appointments as scheduled Take your immunizations and boosters as scheduled If your symptoms worsen call your PCP, if no PCP go to Urgent Care Center or Emergency Room Smoking is Dangerous to Your Health. Avoid second hand smoke Call the 24-hour hour crisis hotline for domestic abuse at Jefry Lewis MD R1 Jan 07, 2017 09:14
[2017-01-07] MEDS: SODIUM CHLORIDE 0.9% FLUSH 10 ML FLUSH IV FLUSH SCH (09:22)
--- NOTE | 2017-01-07 11:09 | HHI.FPPN ---
Subjective Remarks Patient seen and examined this morning by medical team with Sister at bedside. No acute events overnight with vitals WNL. Per her Sister, Ms. Moreno is more active today and has been been making more audible noises, but is still unable to communicate as she was able to prior to her stroke. She has been tolerating her diet well, and the Sister states she and Ms. Moreno are ready to be discharged to rehab today. A ROS was unable to be completed due to the patient' s currently clinical status post-stroke. (Jefry Lewis MD R1) Objective Vitals Vital Signs Date Time Temp Pulse Resp B/P Pulse Ox O2 Delivery O2 Flow Rate FiO2 01/07/17 08:00 97.5 84 19 140/90 98 01/07/17 05:07 18 01/07/17 04:00 98.8 79 20 150/90 98 01/07/17 00:00 98.1 72 20 142/88 99 01/06/17 20:00 98.6 83 20 111/71 99 01/06/17 16:00 95.4 65 16 129/76 98 01/06/17 12:00 96.4 98 17 141/73 97 I/O 01/06/17 01/06/17 01/06/17 01/07/17 01/07/17 01/07/17 07:00 15:00 23:00 07:00 15:00 23:00 Intake Total 684 ml 240 ml 558 ml 486 ml Output Total 20 ml Balance 664 ml 240 ml 558 ml 486 ml Intake Oral 0 ml 240 ml 120 ml 0 ml IV Total 684 ml 438 ml 486 ml Drainage Total 20 ml # Voids 3 3 1 2 # Bowel Movements 0 1 (Jefry Lewis MD R1) Result Diagram: 01/07/17 0500 01/07/17 0500 Objective Remarks CONST: Well-developed, well-nourished female lying in bed in NAD. Patient does not interact during exam. Patient is able to express auditory sounds, but none of which are coherent. HEENT: Atraumatic, normocephalic with EOMI grossly intact (will track people around room). PERRLA. MMM. No rhinorhea. CV: RRR with no MGR. RESP: Clear to anterior auscultation BL. No increased WOB. Patient with access port on L chest currently with access needle intact covered by bandage that is CDI. GI: Soft, nondistended with +BS. MSK: Diffuse atrophy of muscles. No edema or cyanosis. 2+ PT and DP BL. NEURO: Patient is alert, but unable to communicate with examiners. Patient not cooperative in exam. Patient does not spontaneously move the R upper and lower extremity, but does on the L side. (Jefry Lewis MD R1) A/P Assessment and Plan Ms. Moreno is a 51 y/o CF with a PMHx of neurocognitive impairment, OCD, and breast cancer who is currently POD #6 from BL mastectomy presenting with R sided hemiparesis and aphasia secondary to ischemic stroke. Discharge Planning Today to inpatient rehab. DW: Dr. Crespo (Jefry Lewis MD R1) Attending Attestation Patient seen and examined. Case reviewed and discussed with the resident team. Agree with plan of care as discussed with me and documented in the resident note. (Morena Crespo MD) Problem List: (1) Ischemic stroke Status: Acute Plan: Patient found to have ischemic stroke by MRI on postoperative day 4. Clinically patient unable to move right upper and lower extremity with aphasia. CT: Foci of low attenuation on the left. MRI of the brain with and without contrast is recommended for further assessment. MRI: Multiple punctate areas of restricted diffusion involving left periventricular white matter and portions of basal ganglia as well as the internal capsular region consistent with acute to subacute infarction. Increased vascular enhancement in the left middle cerebral artery territory. Finding likely is from slow flow of contrast. EKG sinus rhythm Echocardiogram: normal good EF Carotid ultrasound: fine Lipid profile: resulted, will need statin to help prevent future strokes Neurology consulted, appreciate recommendations Neurochecks with NIH stroke scale ordered PT saw her/OT consulted Tolerating pureed diet well Medications: Aspirin 325 mg daily --Pravastatin 40mg daily SSI per protocol Heparin 5000 units every 8 hours Avoid AMS medications (2) Breast cancer greater than or equal to 2 cm in greatest dimension Status: Acute Plan: Patient from bilateral mastectomy secondary to breast cancer. Patient's L upper flap had a 3X3cm area of ischemia medially that should resolve with Silvadene cream and dressing changes, per GS sign out. she has a FH of BRCA. consider genetic testing as she may need her ovaries removed. Oncology can assist with that She has a port and was to get chemo but this will be started only when she is ready after her CVA Medications: Daily dressing changes with Silvadene per general surgery. --Percocet 5mg PRN Q6H PRN for pain (3) Neurocognitive disorder Status: Chronic Plan: Patient with neurocognitive disorder at baseline. She would normally speak a few words, not fluent sentences but would listen and be able to follow commands (4) Nutrition, metabolism, and development symptoms Status: Acute Plan: Fluids: Team added fluids as she cannot drink some liquids so will heplock once she takes better po Diet: heart healthy with thickened liquids Electrolytes: Within normal limits, continue to monitor DVT prophylaxis: Heparin 5000 units every 8 hours, JOSE/SCDs Prophylaxis: Tylenol 325 mg every 4 hours when necessary for pain, consider some narcotics as she just had surgery (Jefry Lewis MD R1) Jefry Lewis MD R1 Jan 07, 2017 11:09 Morena Crespo MD Jan 07, 2017 13:47
[2017-01-07 12:00] VITALS: BP 135/87; PULSE 87; RESP 18; TEMP 95.7; O2SAT 98
[2017-02-21] MEDS ORDERED: [UNRECOGNIZED DRUG - CODE] EXT (13:21)
[2017-02-21] MEDS ORDERED: [UNRECOGNIZED DRUG - SUPPLY] EXT (13:21)
[2017-02-21] MEDS ORDERED: [UNRECOGNIZED DRUG - CODE] EXT (13:21)
[2017-02-21] MEDS ORDERED: [UNRECOGNIZED DRUG - CODE] (13:21)
[2017-02-21] MEDS ORDERED: CURI4PAD20 EXT (13:21)
[2017-03-02] MEDS ORDERED: PRAV40TA2 PO (11:26)
[2017-03-02] MEDS ORDERED: BACL10TA PO (11:26)
[2017-03-02] MEDS ORDERED: ASPI325T PO (11:26)
[2017-03-02] MEDS ORDERED: ENAL5TAB PO (11:38)
== END 2017-01-07 13:03 | DRG 579 ==
LOC: HSDC 05:46 → HRIP 08:20 → HSDC 08:20 → HSDI 15:48 → N07A 17:32 → OBSVTOIN 01-04 16:16
PROVIDERS: ADMIT Family Medicine; ATTEND Family Medicine
PROC: 0JH60XZ Insertion of Tunneled Vascular Access Device into Chest Subcutaneous Tissue and Fascia, Open Approach (ICD-10-PCS; 2016-12-30)
PROC: 02HV33Z Insertion of Infusion Device into Superior Vena Cava, Percutaneous Approach (ICD-10-PCS; 2016-12-30)
PROC: 0HTV0ZZ Resection of Bilateral Breast, Open Approach (ICD-10-PCS; principal; 2016-12-30 11:15)
PROC: 07B80ZX Excision of Right Internal Mammary Lymphatic, Open Approach, Diagnostic (ICD-10-PCS; 2016-12-30 11:15)
DX: C50.911 Malignant neoplasm of unspecified site of right female breast (principal); I63.40 Cerebral infarction due to embolism of unspecified cerebral artery; G81.91 Hemiplegia, unspecified affecting right dominant side; R47.01 Aphasia; R13.10 Dysphagia, unspecified; F42.9 Obsessive-compulsive disorder, unspecified; Z80.3 Family history of malignant neoplasm of breast; Z83.3 Family history of diabetes mellitus; R29.810 Facial weakness; Z15.01 Genetic susceptibility to malignant neoplasm of breast; R62.59 Other lack of expected normal physiological development in childhood
CPT/HCPCS: 70450; 70553; 71010; 76642; 77001; 78195; 80048; 80053; 80061; 82948; 83036; 83735; 85025; 88307; 88309; 88333; 93005; 93306; 93880; A9541; A9579; C1788; G0378; G8987-GP; G8988-GP; J0131; J0690; J1644; J2060; J2270; J2370; J2405; J2550; J2710; J3010; J3480; J7030; J7120; Q9968

== ENCOUNTER 2018-02-12 11:52 | Day surgery (SDC) | END 2018-02-12 15:25 | disposition home or self-care (01) | DX: I48.91 Unspecified atrial fibrillation (principal) | CPT/HCPCS: 33282; 99152; C1764; J0690; J2250 ==